=== PATIENT | male | born 1995 | race American Indian/Alaskan Native ===

== ENCOUNTER 2016-11-06 05:12 | Inpatient (IN) | payer OTHER ==
[2016-11-06 06:00] LABS: Basophils % (Auto) 0.3 % (0.0-1.8); Eosinophils % (Auto) 0.2 % (0.0-4.3); Hematocrit 40.3 % (35.5-45.6); Hemoglobin 13.4 gm/dl (11.8-15.2); Mean Corpuscular HGB Conc 33 % (32-34); Mean Corpuscular Hemoglobin 28 pg (28-32); Mean Corpuscular Volume 85 fl (84-94); Platelet Count 365 K/mm3 (140-440); Red Blood Count 4.76 M/mm3 (3.65-5.03); Red Cell Distribution Width 18.9 % (13.2-15.2); White Blood Count 11.5 K/mm3 (4.5-11.0)
[2016-11-06 06:26] LABS: Alanine Aminotransferase 11 units/L (7-56); Albumin 4.4 g/dL (3.9-5); Albumin/Globulin Ratio 1.4 %; Alkaline Phosphatase 78 units/L (35-129); Anion Gap 20 mmol/L; BUN/Creatinine Ratio 11.25; Blood Urea Nitrogen 9 mg/dL (9-20); Calcium 9.4 mg/dL (8.4-10.2); Carbon Dioxide 22 mmol/L (22-30); Chloride 101.9 mmol/L (98-107); Glucose 144 mg/dL (75-100); Lipase 28 units/L (13-60); Potassium 4.3 mmol/L (3.6-5.0); Sodium 140 mmol/L (137-145); Total Protein 7.5 g/dL (6.3-8.2)
[2016-11-06 07:34] LABS: Bacteria,Urine 1+ /HPF (Negative); Bilirubin,Urine NEG (Negative); Blood,Urine NEG (Negative); Ketones,Urine NEG (Negative); Leukocyte Esterase,Urine NEG (Negative); Mucus,Urine 3+ /HPF; Nitrite,Urine NEG (Negative); Urobilinogen,Urine < 2.0 mg/dL (<2.0)
[2016-11-06] MEDS ORDERED: MORPHINE IV ONE (09:02)
[2016-11-06] MEDS ORDERED: NACL 0.9% 1000 ML 1,000 ML IV ONE (09:02)
[2016-11-06] MEDS ORDERED: ZOFRAN IV ONE (09:02)
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
[2016-11-06] MEDS ORDERED: NACL ONE (09:06)
--- NOTE | 2016-11-06 10:06 | XRay Report ---
ABDOMINAL SERIES THREE VIEWS: 11/06/16 05:12:00 CLINICAL: Abdominal pain. FINDINGS: Supine and upright views demonstrate a normal bowel gas pattern with a large volume of stool in the colon and rectum. Moderate distention of a single loop of small bowel in the left upper quadrant. No pneumoperitoneum. No mass or suspicious calcifications. The bones and soft tissues are normal. IMPRESSION: Negative abdomen with abundant stool.
--- NOTE | 2016-11-06 10:54 | Cat Scan Report ---
CT ABDOMEN AND PELVIS WITH CONTRAST: 11/06/16 CLINICAL: Abdominal pain. COMPARISON: None. TECHNIQUE: Volumetric acquisition and 1.25 millimeter scan reconstructions after the uneventful intravenous injection of 100 cc Omnipaque 300. Consent was obtained prior to the administration of contrast. Oral contrast was not given. FINDINGS: Abdomen: The proximal and mid small bowel are moderately dilated and filled with fluid. The small bowel transitions to normal-caliber nondilated small bowel at the level of the umbilicus. No obstructing mass is identified. There are postop changes with a healed midline abdominal incision extending from the xiphoid to the pubis. The appendix is normal. Normal stool-filled colon. No pneumoperitoneum. No upper abdominal ascites. Normal liver, bile ducts and gallbladder. There is moderate thickening of the distal antrum of the stomach near the pylorus. The rest of the stomach is normal. Normal aorta and inferior vena cava. Normal adrenal glands and kidneys. The renal collecting systems and ureters are nondilated. No lymphadenopathy. Pelvis: Normal urinary bladder.Normal seminal vesicles and prostate. Mild pelvic ascites. Normal rectum and sigmoid colon.The surgical scar extends to the right groin and merges with soft tissue at the right spermatic cord. Bone windows demonstrate no bone lesion. IMPRESSION:1. Small bowel obstruction with a transition point to normal caliber small bowel at the umbilicus. I suspect surgical adhesion is the likely etiology given the evidence of previous surgery. 2. Nonspecific thickening of the distal antrum of the stomach.
[2016-11-06] MEDS ORDERED: XYLOCAINE TOPICAL 4% TP ONE (11:54)
[2016-11-06] MEDS ORDERED: XYLOCAINE TOPICAL 2% ONE (11:57)
[2016-11-06] MEDS ORDERED: LIDOCAINE VISCOUS 2% MM NR (12:00)
[2016-11-06] MEDS ORDERED: DILAUDID IV ONE (12:00)
--- NOTE | 2016-11-06 12:47 | History and Physical Report ---
History of Present Illness Chief complaint: My stomach hurts History of present illness: 21 YO Male with Nicotine Dependence presents to ED for evaluation. Pt states that he has been experiencing abdominal pain, associated with nausea and vomiting for the past 1 day with worsening symptoms over the past 6 hours. Pt states that his abdominal pain is currently 6/10, diffuse, nonradiating, worse with movement, relieved with nonmovement. Pt denies fever, chills, CP, Palpitations, recent ill contacts, BRBPR, ingestion of food/water from new or different sources. Pt underwent CT abdomen which revealed PSBO with transition, NGT placed in ED. Past History Past Medical History: other (Nicotine Dependence) Past Surgical History: bowel surgery Social history: single, lives with family, smoking Family history: no significant family history Medications and Allergies Allergies Allergy/AdvReac Type Severity Reaction Status Date / Time Fish Containing Products Allergy Swelling Verified 11/06/16 09:08 Home Medications Medication Instructions Recorded Confirmed Last Taken Type No Known Home Medications [No 11/06/16 11/06/16 Unknown History Reported Home Medications] Active Meds: Active Medications Lidocaine HCl (Lidocaine Viscous 2%) 15 ml MM PREOP NR Stop: 11/06/16 23:00 Review of Systems All systems: negative Gastrointestinal: abdominal pain, nausea, vomiting Exam - Constitutional Vitals: Temp Pulse Resp BP Pulse Ox 98.1 F 66 16 120/75 98 11/06/16 09:04 11/06/16 09:04 11/06/16 09:04 11/06/16 09:04 11/06/16 09:05 General appearance: Present: no acute distress, well-nourished - EENT Eyes: Present: PERRL ENT: hearing intact, clear oral mucosa - Neck Neck: Present: supple, normal ROM - Respiratory Respiratory effort: normal Respiratory: bilateral: CTA - Cardiovascular Heart Sounds: Present: S1 & S2. Absent: rub, click - Extremities Extremities: pulses symmetrical, No edema Peripheral Pulses: within normal limits - Abdominal General gastrointestinal: Present: soft, tender, non-distended, hypoactive bowel sounds. Absent: hepatomegaly, mass, hernia Localized gastrointestinal: tender: diffuse, guarding: diffuse, rebound: diffuse Male genitourinary: Present: normal - Integumentary Integumentary: Present: clear, warm, dry - Musculoskeletal Musculoskeletal: gait normal, strength equal bilaterally - Psychiatric Psychiatric: appropriate mood/affect, intact judgment & insight - Neurologic Neurologic: CNII-XII intact, moves all extremities Results - Labs CBC & Chem 7: 11/06/16 05:43 11/06/16 05:43 Labs: Abnormal lab results 11/06/16 11/06/16 11/06/16 Range/Units 05:20 05:43 05:43 WBC 11.5 H (4.5-11.0) K/mm3 RDW 18.9 H (13.2-15.2) % Lymph % (Auto) 8.0 L (13.4-35.0) % Lymph # 0.9 L (1.2-5.4) K/mm3 Seg Neutrophils % 86.4 H (40.0-70.0) % Seg Neutrophils # 9.9 H (1.8-7.7) K/mm3 Glucose 144 H (75-100) mg/dL Urine WBC (Auto) 12.0 H (0.0-6.0) /HPF Assessment and Plan - Patient Problems (1) SBO (small bowel obstruction) Current Visit: Yes Status: Acute Plan to address problem: NGT to LWS, IVF replacement, supportive, early ambulation QID and PRN, NPO, Surgery consulted in ED (2) Peritonitis Current Visit: Yes Status: Acute Plan to address problem: IVF, supportive care, IV abx, supportive care, serial abdominal exam (3) Nicotine dependence Current Visit: Yes Status: Acute Qualifiers: Nicotine product type: N Substance use status: in withdrawal Plan to address problem: PT counseled, pt refused to pick quit date (4) DVT prophylaxis Current Visit: Yes Status: Acute
[2016-11-06] MEDS ORDERED: DUONEB 0.5 MG-3 MG/3 ML SOLN IH PRN (13:02)
[2016-11-06] MEDS ORDERED: TYLENOL PO PRN (13:02)
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
[2016-11-06] MEDS ORDERED: NACL 0.45% 1000 ML 1,000 ML IV SCH (14:00)
--- NOTE | 2016-11-06 16:39 | Admit Criteria Form ---
Admission Criteria Documentation: INTESTINAL OBSTRUCTION Clinical Indications for Admission to Inpatient Care (Place 'X' for any and all applicable criteria): Admission is indicated for ANY ONE of the following (1)(2)(3)(4)(5): [X ]I. Partial bowel obstruction [ ]II. Complete bowel obstruction Extended stay beyond goal length of stay may be needed for(1)(4)(12(: [ ]a) Identified etiology (eg, hernia, volvulus, cancer with obstruction) requiring intervention [ ]b) Gallstone ileus [ ]c) Surgical intervention [ ]d) Acute comorbid illness (eg, electrolyte imbalance, hypovolemia, renal failure) The original [employer] content created by [employer] has been revised. The portions of the content which have been revised are identified through the use of italic text or in bold, and [facility] has neither reviewed nor approved the modified material. All other unmodified content is copyright [employer]. Please see references footnoted in the original [employer] edition 2016 Admission Criteria Met: Yes
[2016-11-06] MEDS ORDERED: TORADOL IV ONE (23:35)
[2016-11-06] MEDS ORDERED: TORADOL IV PRN (23:36)
--- NOTE | 2016-11-07 08:38 | XRay Report ---
ABDOMEN, 2 VIEWS History: Abdominal pain. Findings: A nasogastric tube terminates in the fundus of the stomach. No significant change in moderately dilated and fluid filled loops of small bowel throughout the abdomen. The colon appears normal caliber with normal stool. No free air is appreciated. Impression: No significant change in the partial small bowel obstruction pattern since yesterday's exam.
[2016-11-07 09:42] LABS: Hematocrit 48.8 % (35.5-45.6); Hemoglobin 16.1 gm/dl (11.8-15.2); Mean Corpuscular HGB Conc 33 % (32-34); Mean Corpuscular Hemoglobin 28 pg (28-32); Mean Corpuscular Volume 85 fl (84-94); Platelet Count 423 K/mm3 (140-440); Red Blood Count 5.74 M/mm3 (3.65-5.03); Red Cell Distribution Width 19.3 % (13.2-15.2); White Blood Count 5.4 K/mm3 (4.5-11.0)
[2016-11-07] MEDS ORDERED: LEVAQUIN 500MG/100ML 500 MG/100 ML BAG IV SCH (10:00)
[2016-11-07 10:01] LABS: Albumin 4.5 g/dL (3.9-5); Albumin/Globulin Ratio 1.3 %; BUN/Creatinine Ratio 18.33; Bilirubin,Total 0.8 mg/dL (0.1-1.2); Calcium 9.2 mg/dL (8.4-10.2); Chloride 94.6 mmol/L (98-107); Potassium 3.8 mmol/L (3.6-5.0); Total Protein 7.9 g/dL (6.3-8.2)
[2016-11-07 10:40] LABS: Blastocytes % (Manual) 0 %
[2016-11-07 10:41] LABS: Basophils % (Manual) 0 % (0.0-1.8); Eosinophils % (Manual) 0 % (0.0-4.3); Ovalocytes Few; Polychromasia Few
[2016-11-07 10:42] LABS: Diff Status Complete
--- NOTE | 2016-11-07 11:15 | Event Note ---
Date: 11/07/16 Pt pulled out his iv and NG early this am, it was reinserted and he pulled it out again, I suspect he is taking PO! He is very non compliant, his WBC is normal this am, his lytes demonstrate increased Creat, continue IV fluids, NG, The patient is becoming very difficult to manage, and I have spoken with the patient about this. Continue present management as patient permits.
[2016-11-07] MEDS ORDERED: ATIVAN IV ONE (11:32)
--- NOTE | 2016-11-07 12:54 | Event Note ---
Date: 11/07/16 I inserted the NG personally, I will give 1 litre NS bolus, STRICT NPO, Toradol d/andrew!, check KUB.
--- NOTE | 2016-11-07 13:48 | XRay Report ---
SUPINE KUB: History: Nasogastric tube placement. The nasogastric tube has been advanced and is now coiled in the fundus of the stomach. A portion of the nasogastric tube appears to be coiled within the distal esophagus as well. Please correlate with feet image and consider replacement. Small bowel obstruction pattern is unchanged since earlier today at 0753 hours. Impression: Nasogastric tube as described. Otherwise, no change since earlier today.
[2016-11-07] MEDS ORDERED: MORPHINE IV PRN (14:00)
[2016-11-07] MEDS ORDERED: NACL 0.9% 1000 ML 1,000 ML IV ONE ×3 (14:00→22:05)
[2016-11-07] MEDS ORDERED: NACL 0.45% 1000 ML 1,000 ML IV SCH (14:00)
[2016-11-07] MEDS ORDERED: ANCEF/STERILE WATER 2 GM/20 ML IV NR (16:00)
[2016-11-07] MEDS ORDERED: NEO SYNEPHRINE/NS Syringe(OR USE) IV ONE (16:00)
--- NOTE | 2016-11-07 16:11 | Anesthesia Day of Surgery ---
Anesthesia Day of Surgery - Day of Surgery Patient Examined: Yes Patient H&P Reviewed: Yes Patient is NPO: Yes
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
--- NOTE | 2016-11-07 16:13 | Event Note ---
Date: 11/07/16 Pt's lactic acid came back 9, KUB with fluid filled loops, patient has increased abd pain, will explore and rule out ischemic gut, adhesiolysis, possible bowel resection,I spoke with patient and obtained informed surgical consent, I disc. all potential risks and complication, alternatives in terms patient can understand and patient agreed to surgery and signed his consent.
[2016-11-07] MEDS ORDERED: XYLOCAINE MPF 2% ONE (16:21)
[2016-11-07] MEDS ORDERED: ZEMURON IV ONE (16:21)
[2016-11-07] MEDS ORDERED: QUELICIN ONE (16:21)
[2016-11-07] MEDS ORDERED: SUBLIMAZE ONE (16:22)
[2016-11-07] MEDS ORDERED: DIPRIVAN 10 MG/ML IV ONE (16:22)
[2016-11-07] MEDS ORDERED: CALCIUM CHLORIDE IV ONE (16:30)
[2016-11-07] MEDS ORDERED: SODIUM BICARBONATE ONE (17:12)
[2016-11-07] MEDS ORDERED: SODIUM BICARBONATE IV ONE ×3 (17:15→18:52)
--- NOTE | 2016-11-07 17:26 | Event Note ---
Date: 11/07/16 I was called stat to the room because after induction of anethesia patient developed v fib, and cardiac arrest, code immediately called, patient had emergent left subclavian line place with sterile technique, good venous return, ACLS protocol followed with CPR, rounds of drugs - rate and rhythm recovered for a period, continue present management, see anesthesia record.
[2016-11-07] MEDS ORDERED: ePHEDrine SULFATE ONE ×2 (17:29→17:39)
[2016-11-07] MEDS: INTROPIN DRIP 800 MG/D5W 250 ML 800 MG/250 ML BAG IV SCH (17:55)
[2016-11-07] MEDS ORDERED: SODIUM BICARBONATE 50 MEQ in NACL 0.9% 1000 ML 1,000 ML IV SCH (18:00)
--- NOTE | 2016-11-07 18:06 | Event Note ---
Date: 11/07/16 Complex set of events, consulted [facility] [employer] (), Cardiology , and Worked in OR with patient and anesthesia. Pt ultimately able to be restored to S Tach, with BP, I spoke with patient's Mom at length, Pt is very ill, obviously surgery cancelled. Will check CXR for line and tube placement, prognosis guarded.
[2016-11-07] MEDS ORDERED: NACL 0.9% 1000 ML 2,000 ML ONE (18:07)
[2016-11-07] MEDS ORDERED: D50W (25GM) IV ONE (18:52)
[2016-11-07] MEDS ORDERED: LEVOPHED DRIP 4 MG/NS 250 ML 4 MG/250 ML BAG IV ONE (19:02)
--- NOTE | 2016-11-07 19:16 | XRay Report ---
FINAL REPORT EXAM: XR CHEST 1V AP HISTORY: tube placement TECHNIQUE: Chest portable supine PRIORS: None. FINDINGS: ET tube is present. Tip is in satisfactory position approximately 4.7 centimeters above the galina. There is a left subclavian central venous catheter. Catheter tip overlying the left brachiocephalic vein. There is an NG tube present. There is a loop in the tube within the upper thoracic esophagus. The distal end descends below the diaphragm with tip at the gastric fundus. No evidence for pneumothorax. No acute infiltrate identified. Cardiac and mediastinal contours are within normal limits. IMPRESSION: left subclavian catheter. Catheter tip at the left brachiocephalic vein. ET in satisfactory position NG tube distal end descending below the diaphragm with distal end at the fundus of the stomach. There is a loop in the tubing at the upper esophagus
[2016-11-07 19:18] LABS: ISTAT Base Excess -20; ISTAT HCO3 10.6; ISTAT PCO2 40.7 (35-45); ISTAT PH 7.023 (7.35-7.45); ISTAT PO2 202 (80-105); ISTAT SO2 99; ISTAT TCO2 12
--- NOTE | 2016-11-07 19:24 | Consultation ---
History of Present Illness Consult date: 11/07/16 Past History Past Medical History: other (Nicotine Dependence) Past Surgical History: bowel surgery Social history: single, lives with family, smoking Family history: no significant family history Medications and Allergies Allergies Allergy/AdvReac Type Severity Reaction Status Date / Time Fish Containing Products Allergy Swelling Verified 11/06/16 09:08 Home Medications Medication Instructions Recorded Confirmed Last Taken Type No Known Home Medications [No 11/06/16 11/06/16 Unknown History Reported Home Medications] Active Meds: Active Medications Acetaminophen (Tylenol) 650 mg PO Q4H PRN PRN Reason: Pain MILD(1-3)/Fever >100.5/SEXTON Albuterol/Ipratropium (Duoneb 0.5 Mg-3 Mg/3 Ml Soln) 1 ampul IH Q6HRT PRN PRN Reason: Wheezing Levofloxacin/Dextrose (Levaquin 500mg/100ml) 500 mg in 100 mls @ 100 mls/hr IV Q24HR JOSELIN PRN Reason: Protocol Stop: 11/08/16 07:00 Last Admin: 11/07/16 11:57 Dose: 100 mls/hr Sodium Chloride (Nacl 0.45% 1000 Ml) 1,000 mls @ 125 mls/hr IV DIRECT JOSELIN Dopamine HCl/Dextrose (Intropin Drip 800 Mg/D5w 250 Ml) 800 mg in 250 mls @ 12.885 mls/hr IV TITR JOSELIN; 8 MCG/KG/MIN PRN Reason: Protocol Sodium Bicarbonate 150 meq/ (Dextrose) 1,150 mls @ 150 mls/hr IV DIRECT JOSELIN Morphine Sulfate (Morphine) 2 mg IV Q4H PRN PRN Reason: Pain , Severe (7-10) Physical Examination Vital Signs Temp Pulse Resp BP Pulse Ox 97.8 F 68 18 143/77 99 11/06/16 05:20 11/06/16 05:20 11/06/16 05:20 11/06/16 05:20 11/06/16 05:20 Results 11/07/16 09:08 11/07/16 09:08 Cardiac Enzymes 11/07/16 Range/Units 09:08 AST 21 (5-40) units/L CBC 11/07/16 Range/Units 09:08 WBC 5.4 (4.5-11.0) K/mm3 RBC 5.74 H (3.65-5.03) M/mm3 Hgb 16.1 H (11.8-15.2) gm/dl Hct 48.8 H D (35.5-45.6) % Plt Count 423 (140-440) K/mm3 Comprehensive Metabolic Panel 11/07/16 Range/Units 09:08 Sodium 135 L (137-145) mmol/L Potassium 3.8 (3.6-5.0) mmol/L Chloride 94.6 L (98-107) mmol/L Carbon Dioxide 15 L D (22-30) mmol/L BUN 33 H (9-20) mg/dL Creatinine 1.8 H D (0.8-1.5) mg/dL Glucose 132 H (75-100) mg/dL Calcium 9.2 (8.4-10.2) mg/dL AST 21 (5-40) units/L ALT 13 (7-56) units/L Alkaline Phosphatase 67 (35-129) units/L Total Protein 7.9 (6.3-8.2) g/dL Albumin 4.5 (3.9-5) g/dL Assessment and Plan Detailed Cardiology consult dictated.
[2016-11-07] MEDS: LEVOPHED DRIP 4 MG/NS 250 ML 4 MG/250 ML BAG IV SCH (19:33)
[2016-11-07 20:31] LABS: Creatine Kinase MB 34.5 ng/mL (0.0-4.0)
[2016-11-07 20:35] LABS: Albumin 2.5 g/dL (3.9-5); Albumin/Globulin Ratio 1.3 %; BUN/Creatinine Ratio 12.85; Bilirubin,Total 0.3 mg/dL (0.1-1.2); Calcium 7.9 mg/dL (8.4-10.2); Magnesium 1.7 mg/dL (1.7-2.3); Total Protein 4.4 g/dL (6.3-8.2)
[2016-11-07] MEDS ORDERED: D50W (25GM) IV PRN ×3 (20:38→20:47)
[2016-11-07] MEDS: SODIUM BICARBONATE 150 MEQ in D5W 1,000 ML IV SCH (20:40)
--- NOTE | 2016-11-07 21:57 | Consultation ---
History of Present Illness Consult date: 11/07/16 Requesting physician: RANDALL SEPULVEDA Reason for consult: other (Acute Respiratory Failure; S/P Cardiac Arrest) History of present illness: PULMONARY/CCM CONSULT NOTE (Full dictation # [id number]) Please see dictated notes for full details Past History Past Medical History: other (Nicotine Dependence) Past Surgical History: bowel surgery Social history: single, lives with family, smoking Family history: no significant family history Medications and Allergies Allergies Allergy/AdvReac Type Severity Reaction Status Date / Time Fish Containing Products Allergy Swelling Verified 11/06/16 09:08 Home Medications Medication Instructions Recorded Confirmed Last Taken Type No Known Home Medications [No 11/06/16 11/06/16 Unknown History Reported Home Medications] Active Meds: Active Medications Acetaminophen (Tylenol) 650 mg PO Q4H PRN PRN Reason: Pain MILD(1-3)/Fever >100.5/SEXTON Albuterol/Ipratropium (Duoneb 0.5 Mg-3 Mg/3 Ml Soln) 1 ampul IH Q6HRT PRN PRN Reason: Wheezing Dextrose (D50w (25gm)) 50 ml IV PRN PRN PRN Reason: Hypoglycemia Levofloxacin/Dextrose (Levaquin 500mg/100ml) 500 mg in 100 mls @ 100 mls/hr IV Q24HR JOSELIN PRN Reason: Protocol Stop: 11/08/16 07:00 Last Admin: 11/07/16 11:57 Dose: 100 mls/hr Sodium Chloride (Nacl 0.45% 1000 Ml) 1,000 mls @ 125 mls/hr IV DIRECT JOSELIN Dopamine HCl/Dextrose (Intropin Drip 800 Mg/D5w 250 Ml) 800 mg in 250 mls @ 12.885 mls/hr IV TITR JOSELIN; 8 MCG/KG/MIN PRN Reason: Protocol Last Titration: 11/07/16 19:33 Dose: 20 mcg/kg/min, 32.213 mls/hr Sodium Bicarbonate 150 meq/ (Dextrose) 1,150 mls @ 150 mls/hr IV DIRECT JOSELIN Last Admin: 11/07/16 20:40 Dose: 150 mls/hr Norepinephrine (Levophed Drip 4 Mg/Ns 250 Ml) 4 mg in 250 mls @ 7.5 mls/hr IV TITR JOSELIN; 2 MCG/MIN PRN Reason: Protocol Last Admin: 11/07/16 19:33 Dose: 2 mcg/min, 7.5 mls/hr Morphine Sulfate (Morphine) 2 mg IV Q4H PRN PRN Reason: Pain , Severe (7-10) Physical Examination Vital signs: Vital Signs Temp Pulse Resp BP Pulse Ox 97.8 F 68 18 143/77 99 11/06/16 05:20 11/06/16 05:20 11/06/16 05:20 11/06/16 05:20 11/06/16 05:20 Results - Laboratory Findings CBC and BMP: 11/07/16 09:08 11/07/16 19:38 ABG POC ABG pH 7.023 (7.35-7.45) L 11/07/16 18:42 POC ABG pCO2 40.7 (35-45) 11/07/16 18:42 POC ABG pO2 202 (80-105) H 11/07/16 18:42 POC ABG HCO3 10.6 11/07/16 18:42 POC ABG Total CO2 12 11/07/16 18:42 POC ABG O2 Sat 99 11/07/16 18:42 Abnormal lab findings: Abnormal Labs 11/07/16 11/07/16 11/07/16 09:08 09:08 12:40 RBC 5.74 H Hgb 16.1 H Hct 48.8 H D RDW 19.3 H Seg Neuts % (Manual) 5.0 L Monocytes % (Manual) 17.0 H Seg Neutrophils # Man 0.3 L Monocytes # (Manual) 0.9 H POC ABG pH POC ABG pO2 Sodium 135 L Chloride 94.6 L Carbon Dioxide 15 L D BUN 33 H Creatinine 1.8 H D Glucose 132 H POC Glucose Lactic Acid 9.00 H* Calcium AST Total Creatine Kinase CK-MB (CK-2) Troponin T Total Protein Albumin LDL Cholesterol Direct HDL Cholesterol 11/07/16 11/07/16 11/07/16 18:42 18:44 19:30 RBC Hgb Hct RDW Seg Neuts % (Manual) Monocytes % (Manual) Seg Neutrophils # Man Monocytes # (Manual) POC ABG pH 7.023 L POC ABG pO2 202 H Sodium Chloride Carbon Dioxide BUN Creatinine Glucose POC Glucose < 40 L Lactic Acid 15.40 H* Calcium AST Total Creatine Kinase CK-MB (CK-2) Troponin T Total Protein Albumin LDL Cholesterol Direct HDL Cholesterol 11/07/16 11/07/16 11/07/16 19:38 19:38 19:38 RBC Hgb Hct RDW Seg Neuts % (Manual) Monocytes % (Manual) Seg Neutrophils # Man Monocytes # (Manual) POC ABG pH POC ABG pO2 Sodium Chloride 97.0 L Carbon Dioxide 14 L BUN 45 H Creatinine 3.5 H D Glucose 148 H POC Glucose Lactic Acid Calcium 7.9 L AST 81 H Total Creatine Kinase 1820 H CK-MB (CK-2) 34.5 H Troponin T 0.278 H* Total Protein 4.4 L D Albumin 2.5 L LDL Cholesterol Direct 9 L HDL Cholesterol 34 L
[2016-11-07 22:36] LABS: ISTAT Base Excess -10; ISTAT HCO3 16.5; ISTAT PCO2 31.4 (35-45); ISTAT PH 7.327 (7.35-7.45); ISTAT PO2 105 (80-105); ISTAT SO2 98; ISTAT TCO2 17
[2016-11-07] MEDS: DUONEB 0.5 MG-3 MG/3 ML SOLN IH SCH (22:46)
[2016-11-07] MEDS ORDERED: fentaNYL DRIP Premix 2,000 MCG/100 ML BAG IV SCH (23:00)
[2016-11-07] MEDS ORDERED: VASELINE LIP THERAPY TP PRN (23:31)
[2016-11-07] MEDS ORDERED: ARTIFICIAL TEARS OPHTH OINT OU PRN (23:31)
--- NOTE | 2016-11-07 23:42 | Progress Note ---
Assessment and Plan 1) S/p V fib and Cardio resp arrest in OR after induction of anesthesia- Revived after Acls protocol Now intubated on ventilator.Bp reasonable.In Sinus tach. (2) SBO (small bowel obstruction) Current Visit: Yes Status: Acute Plan to address problem: NGT to LWS, IVF replacement. (3) Peritonitis Current Visit: Yes Status: Acute Plan to address problem: IVF, supportive care, IV abx, supportive care, serial abdominal exa (4) DVT prophylaxis Current Visit: Yes Status: Acute Condition -Guarded Subjective Date of service: 11/07/16 Principal diagnosis: SBO,Cardiac arrest s/p revival Interval history: Patient went into cardio resp arrest in OR-was revived and now in Sinus tach with BP of 103/79. Objective - Exam Narrative Exam: Patient is intubated and on vent support - Constitutional Vitals: Vital Signs - 12hr 11/07/16 11/07/16 11/07/16 15:18 15:55 17:48 Temperature 98.5 F Pulse Rate 149 H 141 H Pulse Rate [ Bilateral Throughout] Respiratory 26 H 13 Rate Respiratory Rate [Bilateral Throughout] Blood Pressure 91/51 O2 Sat by Pulse 97 99 Oximetry 11/07/16 11/07/16 11/07/16 17:50 18:00 18:06 Temperature 97.4 F L Pulse Rate 140 H 138 H 138 H Pulse Rate [ Bilateral Throughout] Respiratory 16 12 Rate Respiratory Rate [Bilateral Throughout] Blood Pressure 88/35 88/38 88/38 O2 Sat by Pulse 97 97 Oximetry 11/07/16 11/07/16 11/07/16 18:10 18:20 18:30 Temperature Pulse Rate 139 H 145 H 147 H Pulse Rate [ Bilateral Throughout] Respiratory 12 16 21 Rate Respiratory Rate [Bilateral Throughout] Blood Pressure 91/36 91/36 89/34 O2 Sat by Pulse 97 96 98 Oximetry 11/07/16 11/07/16 11/07/16 18:40 18:43 18:50 Temperature Pulse Rate 150 H 149 H 150 H Pulse Rate [ Bilateral Throughout] Respiratory 25 H 28 H Rate Respiratory Rate [Bilateral Throughout] Blood Pressure 85/37 85/37 89/38 O2 Sat by Pulse 100 99 100 Oximetry 11/07/16 11/07/16 11/07/16 19:00 19:11 19:21 Temperature Pulse Rate 143 H 144 H 144 H Pulse Rate [ Bilateral Throughout] Respiratory 30 H 30 H 30 H Rate Respiratory Rate [Bilateral Throughout] Blood Pressure 89/38 89/38 131/65 O2 Sat by Pulse 100 100 100 Oximetry 11/07/16 11/07/16 11/07/16 19:30 19:41 19:51 Temperature Pulse Rate 147 H 147 H 146 H Pulse Rate [ Bilateral Throughout] Respiratory 30 H 27 H 27 H Rate Respiratory Rate [Bilateral Throughout] Blood Pressure 121/71 121/71 112/60 O2 Sat by Pulse 100 100 100 Oximetry 11/07/16 11/07/16 11/07/16 20:00 20:11 20:21 Temperature Pulse Rate 142 H 141 H 141 H Pulse Rate [ Bilateral Throughout] Respiratory 30 H 30 H 30 H Rate Respiratory Rate [Bilateral Throughout] Blood Pressure 127/59 127/59 128/64 O2 Sat by Pulse 100 100 99 Oximetry 11/07/16 11/07/16 11/07/16 20:30 20:41 20:51 Temperature Pulse Rate 142 H 142 H 145 H Pulse Rate [ Bilateral Throughout] Respiratory 30 H 29 H 30 H Rate Respiratory Rate [Bilateral Throughout] Blood Pressure 126/71 121/70 116/67 O2 Sat by Pulse 98 98 97 Oximetry 11/07/16 11/07/16 11/07/16 21:00 21:01 21:11 Temperature Pulse Rate 145 H 152 H 146 H Pulse Rate [ Bilateral Throughout] Respiratory 30 H 29 H Rate Respiratory Rate [Bilateral Throughout] Blood Pressure 126/71 113/48 126/71 O2 Sat by Pulse 98 100 98 Oximetry 11/07/16 11/07/16 11/07/16 21:21 21:31 21:41 Temperature Pulse Rate 148 H 152 H 152 H Pulse Rate [ Bilateral Throughout] Respiratory 31 H 31 H 35 H Rate Respiratory Rate [Bilateral Throughout] Blood Pressure 117/80 116/63 116/63 O2 Sat by Pulse 98 98 100 Oximetry 11/07/16 11/07/16 11/07/16 21:51 22:01 22:11 Temperature Pulse Rate 152 H 154 H 153 H Pulse Rate [ Bilateral Throughout] Respiratory 28 H 32 H 37 H Rate Respiratory Rate [Bilateral Throughout] Blood Pressure 113/48 113/48 113/48 O2 Sat by Pulse 100 100 99 Oximetry 11/07/16 11/07/16 11/07/16 22:20 22:31 22:41 Temperature Pulse Rate 153 H 153 H 153 H Pulse Rate [ Bilateral Throughout] Respiratory 35 H 37 H 38 H Rate Respiratory Rate [Bilateral Throughout] Blood Pressure 104/42 104/42 103/79 O2 Sat by Pulse 99 99 99 Oximetry 11/07/16 11/07/16 11/07/16 22:48 22:51 23:01 Temperature Pulse Rate 155 H 159 H Pulse Rate [ 150 H Bilateral Throughout] Respiratory 48 H 35 H Rate Respiratory 36 H Rate [Bilateral Throughout] Blood Pressure 103/79 127/63 O2 Sat by Pulse 99 99 Oximetry 11/07/16 23:11 Temperature Pulse Rate 155 H Pulse Rate [ Bilateral Throughout] Respiratory 39 H Rate Respiratory Rate [Bilateral Throughout] Blood Pressure 127/63 O2 Sat by Pulse 99 Oximetry General appearance: Present: mild distress, well-nourished - EENT Eyes: PERRL, EOM intact ENT: hearing intact, clear oral mucosa Ears: bilateral: normal - Neck Neck: supple, normal ROM - Respiratory Respiratory effort: normal Respiratory: bilateral: CTA - Breasts Breasts: normal - Cardiovascular Rhythm: regular Heart Sounds: Present: S1 & S2. Absent: gallop, rub Extremities: pulses intact, No edema, normal color, Full ROM - Gastrointestinal General gastrointestinal: Present: soft, non-tender, non-distended, normal bowel sounds - Genitourinary Male genitourinary: normal - Integumentary Integumentary: clear, warm, dry - Musculoskeletal Musculoskeletal: 1, strength equal bilaterally - Neurologic Neurologic: moves all extremities - Psychiatric Psychiatric: memory intact, appropriate mood/affect, intact judgment & insight - Labs CBC & Chem 7: 11/07/16 09:08 11/07/16 19:38 Labs: Abnormal lab results 11/07/16 11/07/16 11/07/16 Range/Units 09:08 09:08 12:40 RBC 5.74 H (3.65-5.03) M/mm3 Hgb 16.1 H (11.8-15.2) gm/dl Hct 48.8 H D (35.5-45.6) % RDW 19.3 H (13.2-15.2) % Seg Neuts % (Manual) 5.0 L (40.0-70.0) % Monocytes % (Manual) 17.0 H (0.0-7.3) % Seg Neutrophils # Man 0.3 L (1.8-7.7) K/mm3 Monocytes # (Manual) 0.9 H (0.0-0.8) K/mm3 POC ABG pH (7.35-7.45) POC ABG pCO2 (35-45) POC ABG pO2 (80-105) Sodium 135 L (137-145) mmol/L Chloride 94.6 L (98-107) mmol/L Carbon Dioxide 15 L D (22-30) mmol/L BUN 33 H (9-20) mg/dL Creatinine 1.8 H D (0.8-1.5) mg/dL Glucose 132 H (75-100) mg/dL POC Glucose (70-105) Lactic Acid 9.00 H* (0.7-2.0) mmol/L Calcium (8.4-10.2) mg/dL AST (5-40) units/L Total Creatine Kinase (55-170) units/L CK-MB (CK-2) (0.0-4.0) ng/mL Troponin T (0.00-0.029) ng/mL Total Protein (6.3-8.2) g/dL Albumin (3.9-5) g/dL LDL Cholesterol Direct (50-130) mg/dL HDL Cholesterol (40-59) mg/dL 11/07/16 11/07/16 11/07/16 Range/Units 18:42 18:44 19:30 RBC (3.65-5.03) M/mm3 Hgb (11.8-15.2) gm/dl Hct (35.5-45.6) % RDW (13.2-15.2) % Seg Neuts % (Manual) (40.0-70.0) % Monocytes % (Manual) (0.0-7.3) % Seg Neutrophils # Man (1.8-7.7) K/mm3 Monocytes # (Manual) (0.0-0.8) K/mm3 POC ABG pH 7.023 L (7.35-7.45) POC ABG pCO2 (35-45) POC ABG pO2 202 H (80-105) Sodium (137-145) mmol/L Chloride (98-107) mmol/L Carbon Dioxide (22-30) mmol/L BUN (9-20) mg/dL Creatinine (0.8-1.5) mg/dL Glucose (75-100) mg/dL POC Glucose < 40 L (70-105) Lactic Acid 15.40 H* (0.7-2.0) mmol/L Calcium (8.4-10.2) mg/dL AST (5-40) units/L Total Creatine Kinase (55-170) units/L CK-MB (CK-2) (0.0-4.0) ng/mL Troponin T (0.00-0.029) ng/mL Total Protein (6.3-8.2) g/dL Albumin (3.9-5) g/dL LDL Cholesterol Direct (50-130) mg/dL HDL Cholesterol (40-59) mg/dL 11/07/16 11/07/16 11/07/16 Range/Units 19:38 19:38 19:38 RBC (3.65-5.03) M/mm3 Hgb (11.8-15.2) gm/dl Hct (35.5-45.6) % RDW (13.2-15.2) % Seg Neuts % (Manual) (40.0-70.0) % Monocytes % (Manual) (0.0-7.3) % Seg Neutrophils # Man (1.8-7.7) K/mm3 Monocytes # (Manual) (0.0-0.8) K/mm3 POC ABG pH (7.35-7.45) POC ABG pCO2 (35-45) POC ABG pO2 (80-105) Sodium (137-145) mmol/L Chloride 97.0 L (98-107) mmol/L Carbon Dioxide 14 L (22-30) mmol/L BUN 45 H (9-20) mg/dL Creatinine 3.5 H D (0.8-1.5) mg/dL Glucose 148 H (75-100) mg/dL POC Glucose (70-105) Lactic Acid (0.7-2.0) mmol/L Calcium 7.9 L (8.4-10.2) mg/dL AST 81 H (5-40) units/L Total Creatine Kinase 1820 H (55-170) units/L CK-MB (CK-2) 34.5 H (0.0-4.0) ng/mL Troponin T 0.278 H* (0.00-0.029) ng/mL Total Protein 4.4 L D (6.3-8.2) g/dL Albumin 2.5 L (3.9-5) g/dL LDL Cholesterol Direct 9 L (50-130) mg/dL HDL Cholesterol 34 L (40-59) mg/dL 11/07/16 Range/Units 22:24 RBC (3.65-5.03) M/mm3 Hgb (11.8-15.2) gm/dl Hct (35.5-45.6) % RDW (13.2-15.2) % Seg Neuts % (Manual) (40.0-70.0) % Monocytes % (Manual) (0.0-7.3) % Seg Neutrophils # Man (1.8-7.7) K/mm3 Monocytes # (Manual) (0.0-0.8) K/mm3 POC ABG pH 7.327 L (7.35-7.45) POC ABG pCO2 31.4 L (35-45) POC ABG pO2 (80-105) Sodium (137-145) mmol/L Chloride (98-107) mmol/L Carbon Dioxide (22-30) mmol/L BUN (9-20) mg/dL Creatinine (0.8-1.5) mg/dL Glucose (75-100) mg/dL POC Glucose (70-105) Lactic Acid (0.7-2.0) mmol/L Calcium (8.4-10.2) mg/dL AST (5-40) units/L Total Creatine Kinase (55-170) units/L CK-MB (CK-2) (0.0-4.0) ng/mL Troponin T (0.00-0.029) ng/mL Total Protein (6.3-8.2) g/dL Albumin (3.9-5) g/dL LDL Cholesterol Direct (50-130) mg/dL HDL Cholesterol (40-59) mg/dL
[2016-11-07] MEDS ORDERED: DIPRIVAN 10 MG/ML 1,000 MG/100 ML BOTTLE IV SCH (23:45)
[2016-11-08] MEDS: ZOSYN/NS 2.25 GM/50ML 2.25 GM/50 ML BAG IV SCH ×4 (00:15→23:02)
[2016-11-08] MEDS: LEVOPHED DRIP 4 MG/NS 250 ML 4 MG/250 ML BAG IV SCH ×2 (00:55→08:35)
[2016-11-08] MEDS: PITRESSin 20 UNIT in NACL 0.9% 100 ML IV SCH ×3 (01:27→23:02)
[2016-11-08 02:01] LABS: Creatine Kinase MB 161.4 ng/mL (0.0-4.0)
[2016-11-08] MEDS ORDERED: NACL 0.9% 1000 ML 2,000 ML IV ONE (02:29)
[2016-11-08] MEDS ORDERED: NACL 0.9% 1000 ML 1,000 ML IV ONE (02:29)
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
[2016-11-08 03:52] LABS: Albumin 2.5 g/dL (3.9-5); Albumin/Globulin Ratio 1.1 %; BUN/Creatinine Ratio 11.59; Bilirubin,Total 0.4 mg/dL (0.1-1.2); Calcium 6.6 mg/dL (8.4-10.2); Chloride 98.3 mmol/L (98-107); Potassium 4.2 mmol/L (3.6-5.0); Total Protein 4.7 g/dL (6.3-8.2)
[2016-11-08] MEDS ORDERED: TYLENOL PR PRN (05:45)
[2016-11-08 06:04] LABS: ISTAT Base Excess -6; ISTAT PCO2 25.8 (35-45); ISTAT PH 7.451 (7.35-7.45); ISTAT PO2 94 (80-105); ISTAT SO2 98; ISTAT TCO2 19
[2016-11-08] MEDS ORDERED: ADRENALIN ONE ×2 (06:05→12:15)
[2016-11-08] MEDS ORDERED: CALCIUM CHLORIDE IV ONE ×2 (06:05→12:35)
[2016-11-08] MEDS ORDERED: NACL 0.9% ONE (06:05)
[2016-11-08] MEDS ORDERED: SODIUM BICARBONATE IV ONE ×4 (06:05→12:35)
[2016-11-08] MEDS ORDERED: D50W (25GM) IV ONE ×2 (06:05→12:15)
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
--- NOTE | 2016-11-08 06:30 | Event Note ---
Date: 11/08/16 Code blue called Initial rhythm was PEA ACLS protocol was initiated, please refer to the code sheet for details He was shocked once for VTAc, he then went into [facility]T There was ROSC Will repeat labs, family will be notified
[2016-11-08] MEDS ORDERED: PROTONIX IV ONE (06:40)
[2016-11-08] MEDS ORDERED: PROTONIX 80 MG in NACL 0.9% 100 ML IV SCH (06:40)
[2016-11-08 07:15] LABS: Hematocrit 32.2 % (35.5-45.6); Hemoglobin 10.1 gm/dl (11.8-15.2); Mean Corpuscular HGB Conc 31 % (32-34); Mean Corpuscular Hemoglobin 28 pg (28-32); Mean Corpuscular Volume 89 fl (84-94); Platelet Count 177 K/mm3 (140-440); Red Cell Distribution Width 19.4 % (13.2-15.2); White Blood Count 2.8 K/mm3 (4.5-11.0)
[2016-11-08 07:21] LABS: Albumin 1.6 g/dL (3.9-5); Albumin/Globulin Ratio 0.9 %; BUN/Creatinine Ratio 10.37; Basophils % (Auto) 0.3 % (0.0-1.8); Bilirubin,Total 0.3 mg/dL (0.1-1.2); Calcium 7.6 mg/dL (8.4-10.2); Chloride 97.5 mmol/L (98-107); Eosinophils % (Auto) 0.1 % (0.0-4.3); Potassium 4.7 mmol/L (3.6-5.0); Total Protein 3.4 g/dL (6.3-8.2)
[2016-11-08 07:25] LABS: INR 4.03 (0.87-1.13)
[2016-11-08 07:26] LABS: Partial Thromboplastin Time 59.3 Sec. (24.2-36.6)
[2016-11-08] MEDS ORDERED: MAGNESIUM SULFATE 2GM/50ML 2 GM/50 ML BAG IV ONE (08:00)
[2016-11-08 08:36] LABS: Hematocrit 40.5 % (35.5-45.6); Hemoglobin 12.5 gm/dl (11.8-15.2); Mean Corpuscular HGB Conc 31 % (32-34); Mean Corpuscular Hemoglobin 28 pg (28-32); Mean Corpuscular Volume 90 fl (84-94); Platelet Count 195 K/mm3 (140-440); Red Blood Count 4.52 M/mm3 (3.65-5.03); Red Cell Distribution Width 19.8 % (13.2-15.2); White Blood Count 3.9 K/mm3 (4.5-11.0)
[2016-11-08] MEDS: DUONEB 0.5 MG-3 MG/3 ML SOLN IH SCH ×3 (08:56→19:46)
[2016-11-08 08:59] LABS: Creatine Kinase MB 120.2 ng/mL (0.0-4.0)
[2016-11-08] MEDS ORDERED: LEVOPHED 8 MG in NACL 0.9% 250ML 242 ML IV SCH (09:00)
[2016-11-08 09:33] LABS: Anisocytosis 1+; Basophils % (Manual) 0 % (0.0-1.8); Blastocytes % (Manual) 0 %; Burr Cells Few; Diff Status Complete; Large Platelets Few; Ovalocytes Few; Platelet Estimate Consistent w Auto
--- NOTE | 2016-11-08 09:43 | Progress Note ---
Assessment and Plan 21 YO Male with Nicotine Dependence presented to ED for abdominal pain, associated with nausea and vomiting for the past 1 day with worsening symptoms over the past [address] abdomen pelvis showed PSBO. Initially was on NG suction. Surgery was planned for levated lactic acid and increased abdominal pain. Patient had cardiac arrest after giving anesthesia. He was intubated and transfer to CCU, surgery was cancelled. His CE and Cr cont to increase. requiring 2 pressor to maintain BP. He had another cardiac arrest this morning. No cough or gag reflex on physical exam. s/p cardiac arrest - get 2d echo - monitor CE, cardiology consult - likely from severe sepsis Acute respiratory failure - likely from cardiac arrest due to severe sepsis - on vent, CC following Acute metabolic encephalopathy - possible anoxic brain injury - CT head, EEG - neuro consult [facility] - likely ATN from severe sepsis - cont bicarbonate drip - very low urine output elevated troponin - likely from cardiac arrest and [facility] - cont to monitor, cardiology consulted - obtain 2d echo, will defer anticoagulation to cardiology SBO with elevated lactic acid - keep NPO, surgery following Severe sepsis - intra abdominal in origin - cont zosyn, add vancomycin Septic shock - on pressors, cont to monitor BP Very poor prognosis. Updated family at bedside. The high probability of a clinically significant, sudden or life threatening deterioration of the system(s) required my full and direct attention, intervention and personal management. The aggregate critical care time was [40] minutes. This time is in addition to time spent performing reported procedures but includes the following: [X] Data Review and interpretation [X] Patient assessment and monitoring of vital signs [X] Documentation [X] Medication orders and management Subjective Date of service: 11/08/16 Principal diagnosis: SBO,Cardiac arrest s/p revival Interval history: Pt aracelis nd examined updated family at bedside had cardiac arrest this morning Initial rhythm was PEA ACLS protocol was initiated, He was shocked once for VTAc, he then went into SVT he is now on three pressors and intubated Objective - Constitutional Vitals: Vital Signs - 12hr 11/07/16 11/07/16 11/07/16 21:51 22:01 22:11 Temperature Pulse Rate 152 H 154 H 153 H Pulse Rate [ Bilateral Throughout] Respiratory 28 H 32 H 37 H Rate Respiratory Rate [Bilateral Throughout] Blood Pressure 113/48 113/48 113/48 O2 Sat by Pulse 100 100 99 Oximetry 11/07/16 11/07/16 11/07/16 22:20 22:31 22:41 Temperature Pulse Rate 153 H 153 H 153 H Pulse Rate [ Bilateral Throughout] Respiratory 35 H 37 H 38 H Rate Respiratory Rate [Bilateral Throughout] Blood Pressure 104/42 104/42 103/79 O2 Sat by Pulse 99 99 99 Oximetry 11/07/16 11/07/16 11/07/16 22:48 22:51 23:01 Temperature Pulse Rate 155 H 159 H Pulse Rate [ 150 H Bilateral Throughout] Respiratory 48 H 35 H Rate Respiratory 36 H Rate [Bilateral Throughout] Blood Pressure 103/79 127/63 O2 Sat by Pulse 99 99 Oximetry 11/07/16 11/07/16 11/07/16 23:11 23:15 23:21 Temperature Pulse Rate 155 H 157 H 159 H Pulse Rate [ Bilateral Throughout] Respiratory 39 H 40 H 46 H Rate Respiratory Rate [Bilateral Throughout] Blood Pressure 127/63 127/63 115/86 O2 Sat by Pulse 99 99 99 Oximetry 11/07/16 11/07/16 11/07/16 23:31 23:41 23:51 Temperature Pulse Rate 163 H 168 H 169 H Pulse Rate [ Bilateral Throughout] Respiratory 49 H 49 H 49 H Rate Respiratory Rate [Bilateral Throughout] Blood Pressure 108/85 108/85 132/60 O2 Sat by Pulse 99 98 98 Oximetry 11/08/16 11/08/16 11/08/16 00:00 00:10 00:21 Temperature Pulse Rate 167 H 160 H 156 H Pulse Rate [ Bilateral Throughout] Respiratory 30 H 30 H 30 H Rate Respiratory Rate [Bilateral Throughout] Blood Pressure 132/60 95/44 84/39 O2 Sat by Pulse 100 99 99 Oximetry 11/08/16 11/08/16 11/08/16 00:24 00:31 00:41 Temperature 100.1 F H Pulse Rate 155 H 150 H Pulse Rate [ Bilateral Throughout] Respiratory 30 H 30 H Rate Respiratory Rate [Bilateral Throughout] Blood Pressure 79/30 78/31 O2 Sat by Pulse 98 97 Oximetry 11/08/16 11/08/16 11/08/16 00:50 01:01 01:11 Temperature Pulse Rate 147 H 150 H 151 H Pulse Rate [ Bilateral Throughout] Respiratory 30 H 30 H 30 H Rate Respiratory Rate [Bilateral Throughout] Blood Pressure 71/37 114/58 98/38 O2 Sat by Pulse 97 97 97 Oximetry 11/08/16 11/08/16 11/08/16 01:21 01:30 01:40 Temperature Pulse Rate 151 H 148 H 148 H Pulse Rate [ Bilateral Throughout] Respiratory 30 H 30 H 30 H Rate Respiratory Rate [Bilateral Throughout] Blood Pressure 98/38 86/24 89/15 O2 Sat by Pulse 97 97 97 Oximetry 11/08/16 11/08/16 11/08/16 01:50 02:00 02:10 Temperature Pulse Rate 150 H 150 H 149 H Pulse Rate [ Bilateral Throughout] Respiratory 30 H 30 H 30 H Rate Respiratory Rate [Bilateral Throughout] Blood Pressure 74/18 86/38 66/37 O2 Sat by Pulse 98 100 97 Oximetry 11/08/16 11/08/16 11/08/16 02:20 02:31 02:41 Temperature Pulse Rate 150 H 152 H 151 H Pulse Rate [ Bilateral Throughout] Respiratory 30 H 30 H 30 H Rate Respiratory Rate [Bilateral Throughout] Blood Pressure 70/40 65/44 85/39 O2 Sat by Pulse 97 97 98 Oximetry 11/08/16 11/08/16 11/08/16 02:50 03:00 03:11 Temperature Pulse Rate 151 H 150 H 152 H Pulse Rate [ Bilateral Throughout] Respiratory 30 H 30 H 31 H Rate Respiratory Rate [Bilateral Throughout] Blood Pressure 90/47 87/52 80/56 O2 Sat by Pulse 100 99 98 Oximetry 11/08/16 11/08/16 11/08/16 03:20 03:31 03:41 Temperature Pulse Rate 151 H 158 H 157 H Pulse Rate [ Bilateral Throughout] Respiratory 33 H 36 H 34 H Rate Respiratory Rate [Bilateral Throughout] Blood Pressure 89/53 89/53 81/57 O2 Sat by Pulse 98 100 100 Oximetry 11/08/16 11/08/16 11/08/16 03:51 04:00 04:01 Temperature Pulse Rate 158 H 163 H Pulse Rate [ Bilateral Throughout] Respiratory 34 H 40 H Rate Respiratory Rate [Bilateral Throughout] Blood Pressure 81/57 150/88 O2 Sat by Pulse 100 100 100 Oximetry 11/08/16 11/08/16 11/08/16 04:11 04:21 04:31 Temperature Pulse Rate 158 H 160 H 164 H Pulse Rate [ Bilateral Throughout] Respiratory 39 H 42 H 44 H Rate Respiratory Rate [Bilateral Throughout] Blood Pressure 147/87 147/87 92/43 O2 Sat by Pulse 100 100 100 Oximetry 11/08/16 11/08/16 11/08/16 04:36 04:41 04:51 Temperature 100.4 F H Pulse Rate 166 H 169 H Pulse Rate [ Bilateral Throughout] Respiratory 38 H 42 H Rate Respiratory Rate [Bilateral Throughout] Blood Pressure 80/61 80/61 O2 Sat by Pulse 100 100 Oximetry 11/08/16 11/08/16 11/08/16 05:01 05:11 05:20 Temperature Pulse Rate 173 H 170 H 176 H Pulse Rate [ Bilateral Throughout] Respiratory 41 H 40 H 45 H Rate Respiratory Rate [Bilateral Throughout] Blood Pressure 75/25 79/55 96/57 O2 Sat by Pulse 100 99 99 Oximetry 11/08/16 11/08/16 11/08/16 05:31 05:40 05:51 Temperature Pulse Rate 178 H 165 H 110 H Pulse Rate [ Bilateral Throughout] Respiratory 40 H 39 H 15 Rate Respiratory Rate [Bilateral Throughout] Blood Pressure 109/79 93/38 117/83 O2 Sat by Pulse 74 L Oximetry 11/08/16 11/08/16 11/08/16 06:01 06:11 06:21 Temperature Pulse Rate 194 H 139 H Pulse Rate [ Bilateral Throughout] Respiratory 22 37 H 21 Rate Respiratory Rate [Bilateral Throughout] Blood Pressure 117/98 105/45 88/39 O2 Sat by Pulse 98 Oximetry 11/08/16 11/08/16 11/08/16 06:30 06:40 06:50 Temperature Pulse Rate 129 H 127 H 127 H Pulse Rate [ Bilateral Throughout] Respiratory 35 H 34 H 35 H Rate Respiratory Rate [Bilateral Throughout] Blood Pressure 69/34 78/26 71/35 O2 Sat by Pulse 98 99 99 Oximetry 11/08/16 11/08/16 11/08/16 07:00 07:11 07:21 Temperature Pulse Rate 128 H 128 H 130 H Pulse Rate [ Bilateral Throughout] Respiratory 17 35 H 21 Rate Respiratory Rate [Bilateral Throughout] Blood Pressure 76/25 83/32 71/35 O2 Sat by Pulse 99 86 Oximetry 11/08/16 11/08/16 11/08/16 07:31 07:41 07:51 Temperature Pulse Rate 130 H 130 H 128 H Pulse Rate [ Bilateral Throughout] Respiratory 18 17 18 Rate Respiratory Rate [Bilateral Throughout] Blood Pressure 90/57 90/57 90/57 O2 Sat by Pulse 76 L Oximetry 11/08/16 11/08/16 11/08/16 08:00 08:01 08:11 Temperature 102.0 F H Pulse Rate 129 H 132 H Pulse Rate [ Bilateral Throughout] Respiratory 21 18 Rate Respiratory Rate [Bilateral Throughout] Blood Pressure 75/44 141/106 O2 Sat by Pulse Oximetry 11/08/16 11/08/16 11/08/16 08:21 08:31 08:40 Temperature Pulse Rate 131 H 133 H 132 H Pulse Rate [ Bilateral Throughout] Respiratory 16 18 16 Rate Respiratory Rate [Bilateral Throughout] Blood Pressure 146/121 90/54 103/49 O2 Sat by Pulse 71 L Oximetry 11/08/16 11/08/16 11/08/16 08:51 08:56 09:00 Temperature Pulse Rate 129 H 130 H Pulse Rate [ 130 H Bilateral Throughout] Respiratory 15 Rate Respiratory 15 Rate [Bilateral Throughout] Blood Pressure 110/38 110/38 O2 Sat by Pulse 64 L 100 Oximetry 11/08/16 09:01 Temperature Pulse Rate 129 H Pulse Rate [ Bilateral Throughout] Respiratory 17 Rate Respiratory Rate [Bilateral Throughout] Blood Pressure 126/90 O2 Sat by Pulse Oximetry General appearance: Present: other (unresponsive) - EENT ENT: clear oral mucosa (no), no thrush Ears: bilateral: normal - Neck Neck: supple, masses or JVD, no enlarged thyroid - Respiratory Respiratory effort: other (on vent ) Respiratory: bilateral: CTA, rales - Cardiovascular Heart Sounds: Present: S1 & S2 (tachycardic). Absent: gallop, rub Extremities: No edema, normal color - Gastrointestinal General gastrointestinal: Present: soft, distended, absent bowel sounds, other - Integumentary Integumentary: clear, clammy - Musculoskeletal Musculoskeletal: other (does not follow commend) - Neurologic Neurologic: other (no cough or gag reflex) - Psychiatric Psychiatric: other (unable to assess) - Labs CBC & Chem 7: 11/08/16 06:40 11/08/16 06:40 Labs: Abnormal lab results 11/07/16 11/07/16 11/07/16 Range/Units 09:08 09:08 12:40 WBC (4.5-11.0) K/mm3 RBC 5.74 H (3.65-5.03) M/mm3 Hgb 16.1 H (11.8-15.2) gm/dl Hct 48.8 H D (35.5-45.6) % MCHC (32-34) % RDW 19.3 H (13.2-15.2) % Lymph % (Auto) (13.4-35.0) % [place] % (Auto) (0.0-7.3) % Seg Neuts % (Manual) 5.0 L (40.0-70.0) % Monocytes % (Manual) 17.0 H (0.0-7.3) % Nucleated RBC % (0.0-0.9) % Seg Neutrophils # (1.8-7.7) K/mm3 Seg Neutrophils # Man 0.3 L (1.8-7.7) K/mm3 Lymphocytes # (Manual) (1.2-5.4) K/mm3 Monocytes # (Manual) 0.9 H (0.0-0.8) K/mm3 PT (12.2-14.9) Sec. INR (0.87-1.13) APTT (24.2-36.6) Sec. POC ABG pH (7.35-7.45) POC ABG pCO2 (35-45) POC ABG pO2 (80-105) Sodium 135 L (137-145) mmol/L Chloride 94.6 L (98-107) mmol/L Carbon Dioxide 15 L D (22-30) mmol/L BUN 33 H (9-20) mg/dL Creatinine 1.8 H D (0.8-1.5) mg/dL Glucose 132 H (75-100) mg/dL POC Glucose (70-105) Lactic Acid 9.00 H* (0.7-2.0) mmol/L Calcium (8.4-10.2) mg/dL Magnesium (1.7-2.3) mg/dL AST (5-40) units/L ALT (7-56) units/L Total Creatine Kinase (55-170) units/L CK-MB (CK-2) (0.0-4.0) ng/mL Troponin T (0.00-0.029) ng/mL C-Reactive Protein (0.00-1.30) mg/dL Total Protein (6.3-8.2) g/dL Albumin (3.9-5) g/dL LDL Cholesterol Direct (50-130) mg/dL HDL Cholesterol (40-59) mg/dL Urine Creatinine (0.1-20.0) mg/dL 11/07/16 11/07/16 11/07/16 Range/Units 18:42 18:44 19:30 WBC (4.5-11.0) K/mm3 RBC (3.65-5.03) M/mm3 Hgb (11.8-15.2) gm/dl Hct (35.5-45.6) % MCHC (32-34) % RDW (13.2-15.2) % Lymph % (Auto) (13.4-35.0) % [place] % (Auto) (0.0-7.3) % Seg Neuts % (Manual) (40.0-70.0) % Monocytes % (Manual) (0.0-7.3) % Nucleated RBC % (0.0-0.9) % Seg Neutrophils # (1.8-7.7) K/mm3 Seg Neutrophils # Man (1.8-7.7) K/mm3 Lymphocytes # (Manual) (1.2-5.4) K/mm3 Monocytes # (Manual) (0.0-0.8) K/mm3 PT (12.2-14.9) Sec. INR (0.87-1.13) APTT (24.2-36.6) Sec. POC ABG pH 7.023 L (7.35-7.45) POC ABG pCO2 (35-45) POC ABG pO2 202 H (80-105) Sodium (137-145) mmol/L Chloride (98-107) mmol/L Carbon Dioxide (22-30) mmol/L BUN (9-20) mg/dL Creatinine (0.8-1.5) mg/dL Glucose (75-100) mg/dL POC Glucose < 40 L (70-105) Lactic Acid 15.40 H* (0.7-2.0) mmol/L Calcium (8.4-10.2) mg/dL Magnesium (1.7-2.3) mg/dL AST (5-40) units/L ALT (7-56) units/L Total Creatine Kinase (55-170) units/L CK-MB (CK-2) (0.0-4.0) ng/mL Troponin T (0.00-0.029) ng/mL C-Reactive Protein (0.00-1.30) mg/dL Total Protein (6.3-8.2) g/dL Albumin (3.9-5) g/dL LDL Cholesterol Direct (50-130) mg/dL HDL Cholesterol (40-59) mg/dL Urine Creatinine (0.1-20.0) mg/dL 11/07/16 11/07/16 11/07/16 Range/Units 19:38 19:38 19:38 WBC (4.5-11.0) K/mm3 RBC (3.65-5.03) M/mm3 Hgb (11.8-15.2) gm/dl Hct (35.5-45.6) % MCHC (32-34) % RDW (13.2-15.2) % Lymph % (Auto) (13.4-35.0) % [place] % (Auto) (0.0-7.3) % Seg Neuts % (Manual) (40.0-70.0) % Monocytes % (Manual) (0.0-7.3) % Nucleated RBC % (0.0-0.9) % Seg Neutrophils # (1.8-7.7) K/mm3 Seg Neutrophils # Man (1.8-7.7) K/mm3 Lymphocytes # (Manual) (1.2-5.4) K/mm3 Monocytes # (Manual) (0.0-0.8) K/mm3 PT (12.2-14.9) Sec. INR (0.87-1.13) APTT (24.2-36.6) Sec. POC ABG pH (7.35-7.45) POC ABG pCO2 (35-45) POC ABG pO2 (80-105) Sodium (137-145) mmol/L Chloride 97.0 L (98-107) mmol/L Carbon Dioxide 14 L (22-30) mmol/L BUN 45 H (9-20) mg/dL Creatinine 3.5 H D (0.8-1.5) mg/dL Glucose 148 H (75-100) mg/dL POC Glucose (70-105) Lactic Acid (0.7-2.0) mmol/L Calcium 7.9 L (8.4-10.2) mg/dL Magnesium (1.7-2.3) mg/dL AST 81 H (5-40) units/L ALT (7-56) units/L Total Creatine Kinase 1820 H (55-170) units/L CK-MB (CK-2) 34.5 H (0.0-4.0) ng/mL Troponin T 0.278 H* (0.00-0.029) ng/mL C-Reactive Protein (0.00-1.30) mg/dL Total Protein 4.4 L D (6.3-8.2) g/dL Albumin 2.5 L (3.9-5) g/dL LDL Cholesterol Direct 9 L (50-130) mg/dL HDL Cholesterol 34 L (40-59) mg/dL Urine Creatinine (0.1-20.0) mg/dL 11/07/16 11/07/16 11/07/16 Range/Units 22:24 22:54 23:46 WBC (4.5-11.0) K/mm3 RBC (3.65-5.03) M/mm3 Hgb (11.8-15.2) gm/dl Hct (35.5-45.6) % MCHC (32-34) % RDW (13.2-15.2) % Lymph % (Auto) (13.4-35.0) % [place] % (Auto) (0.0-7.3) % Seg Neuts % (Manual) (40.0-70.0) % Monocytes % (Manual) (0.0-7.3) % Nucleated RBC % (0.0-0.9) % Seg Neutrophils # (1.8-7.7) K/mm3 Seg Neutrophils # Man (1.8-7.7) K/mm3 Lymphocytes # (Manual) (1.2-5.4) K/mm3 Monocytes # (Manual) (0.0-0.8) K/mm3 PT (12.2-14.9) Sec. INR (0.87-1.13) APTT (24.2-36.6) Sec. POC ABG pH 7.327 L (7.35-7.45) POC ABG pCO2 31.4 L (35-45) POC ABG pO2 (80-105) Sodium (137-145) mmol/L Chloride (98-107) mmol/L Carbon Dioxide (22-30) mmol/L BUN (9-20) mg/dL Creatinine (0.8-1.5) mg/dL Glucose (75-100) mg/dL POC Glucose 159 H (70-105) Lactic Acid (0.7-2.0) mmol/L Calcium (8.4-10.2) mg/dL Magnesium (1.7-2.3) mg/dL AST (5-40) units/L ALT (7-56) units/L Total Creatine Kinase (55-170) units/L CK-MB (CK-2) (0.0-4.0) ng/mL Troponin T (0.00-0.029) ng/mL C-Reactive Protein 21.10 H (0.00-1.30) mg/dL Total Protein (6.3-8.2) g/dL Albumin (3.9-5) g/dL LDL Cholesterol Direct (50-130) mg/dL HDL Cholesterol (40-59) mg/dL Urine Creatinine (0.1-20.0) mg/dL 11/08/16 11/08/16 11/08/16 Range/Units 01:15 01:15 02:00 WBC (4.5-11.0) K/mm3 RBC (3.65-5.03) M/mm3 Hgb (11.8-15.2) gm/dl Hct (35.5-45.6) % MCHC (32-34) % RDW (13.2-15.2) % Lymph % (Auto) (13.4-35.0) % [place] % (Auto) (0.0-7.3) % Seg Neuts % (Manual) (40.0-70.0) % Monocytes % (Manual) (0.0-7.3) % Nucleated RBC % (0.0-0.9) % Seg Neutrophils # (1.8-7.7) K/mm3 Seg Neutrophils # Man (1.8-7.7) K/mm3 Lymphocytes # (Manual) (1.2-5.4) K/mm3 Monocytes # (Manual) (0.0-0.8) K/mm3 PT (12.2-14.9) Sec. INR (0.87-1.13) APTT (24.2-36.6) Sec. POC ABG pH (7.35-7.45) POC ABG pCO2 (35-45) POC ABG pO2 (80-105) Sodium (137-145) mmol/L Chloride (98-107) mmol/L Carbon Dioxide 19 L (22-30) mmol/L BUN 51 H (9-20) mg/dL Creatinine 4.4 H (0.8-1.5) mg/dL Glucose 140 H (75-100) mg/dL POC Glucose (70-105) Lactic Acid 6.80 H* (0.7-2.0) mmol/L Calcium 6.6 L D (8.4-10.2) mg/dL Magnesium (1.7-2.3) mg/dL AST 363 H (5-40) units/L ALT 121 H (7-56) units/L Total Creatine Kinase 06919 H (55-170) units/L CK-MB (CK-2) 161.4 H (0.0-4.0) ng/mL Troponin T (0.00-0.029) ng/mL C-Reactive Protein (0.00-1.30) mg/dL Total Protein 4.7 L (6.3-8.2) g/dL Albumin 2.5 L (3.9-5) g/dL LDL Cholesterol Direct (50-130) mg/dL HDL Cholesterol (40-59) mg/dL Urine Creatinine (0.1-20.0) mg/dL 11/08/16 11/08/16 11/08/16 Range/Units 02:00 02:00 02:08 WBC (4.5-11.0) K/mm3 RBC (3.65-5.03) M/mm3 Hgb (11.8-15.2) gm/dl Hct (35.5-45.6) % MCHC (32-34) % RDW (13.2-15.2) % Lymph % (Auto) (13.4-35.0) % [place] % (Auto) (0.0-7.3) % Seg Neuts % (Manual) (40.0-70.0) % Monocytes % (Manual) (0.0-7.3) % Nucleated RBC % (0.0-0.9) % Seg Neutrophils # (1.8-7.7) K/mm3 Seg Neutrophils # Man (1.8-7.7) K/mm3 Lymphocytes # (Manual) (1.2-5.4) K/mm3 Monocytes # (Manual) (0.0-0.8) K/mm3 PT (12.2-14.9) Sec. INR (0.87-1.13) APTT (24.2-36.6) Sec. POC ABG pH (7.35-7.45) POC ABG pCO2 (35-45) POC ABG pO2 (80-105) Sodium (137-145) mmol/L Chloride (98-107) mmol/L Carbon Dioxide (22-30) mmol/L BUN (9-20) mg/dL Creatinine (0.8-1.5) mg/dL Glucose (75-100) mg/dL POC Glucose (70-105) Lactic Acid 7.50 H* (0.7-2.0) mmol/L Calcium (8.4-10.2) mg/dL Magnesium (1.7-2.3) mg/dL AST (5-40) units/L ALT (7-56) units/L Total Creatine Kinase (55-170) units/L CK-MB (CK-2) (0.0-4.0) ng/mL Troponin T 2.120 H* D (0.00-0.029) ng/mL C-Reactive Protein (0.00-1.30) mg/dL Total Protein (6.3-8.2) g/dL Albumin (3.9-5) g/dL LDL Cholesterol Direct (50-130) mg/dL HDL Cholesterol (40-59) mg/dL Urine Creatinine 220.4 H (0.1-20.0) mg/dL 11/08/16 11/08/16 11/08/16 Range/Units 05:18 06:10 06:40 WBC 3.9 L (4.5-11.0) K/mm3 RBC (3.65-5.03) M/mm3 Hgb (11.8-15.2) gm/dl Hct (35.5-45.6) % MCHC 31 L (32-34) % RDW 19.8 H (13.2-15.2) % Lymph % (Auto) (13.4-35.0) % [place] % (Auto) (0.0-7.3) % Seg Neuts % (Manual) 9.0 L (40.0-70.0) % Monocytes % (Manual) 16.0 H (0.0-7.3) % Nucleated RBC % 14.0 H (0.0-0.9) % Seg Neutrophils # (1.8-7.7) K/mm3 Seg Neutrophils # Man 0.4 L (1.8-7.7) K/mm3 Lymphocytes # (Manual) 0.8 L (1.2-5.4) K/mm3 Monocytes # (Manual) (0.0-0.8) K/mm3 PT (12.2-14.9) Sec. INR (0.87-1.13) APTT (24.2-36.6) Sec. POC ABG pH 7.451 H (7.35-7.45) POC ABG pCO2 25.8 L (35-45) POC ABG pO2 (80-105) Sodium (137-145) mmol/L Chloride (98-107) mmol/L Carbon Dioxide (22-30) mmol/L BUN (9-20) mg/dL Creatinine (0.8-1.5) mg/dL Glucose (75-100) mg/dL POC Glucose 55 L (70-105) Lactic Acid (0.7-2.0) mmol/L Calcium (8.4-10.2) mg/dL Magnesium (1.7-2.3) mg/dL AST (5-40) units/L ALT (7-56) units/L Total Creatine Kinase (55-170) units/L CK-MB (CK-2) (0.0-4.0) ng/mL Troponin T (0.00-0.029) ng/mL C-Reactive Protein (0.00-1.30) mg/dL Total Protein (6.3-8.2) g/dL Albumin (3.9-5) g/dL LDL Cholesterol Direct (50-130) mg/dL HDL Cholesterol (40-59) mg/dL Urine Creatinine (0.1-20.0) mg/dL 11/08/16 11/08/16 11/08/16 Range/Units 06:40 06:40 06:40 WBC 2.8 L (4.5-11.0) K/mm3 RBC 3.60 L (3.65-5.03) M/mm3 Hgb 10.1 L (11.8-15.2) gm/dl Hct 32.2 L D (35.5-45.6) % MCHC 31 L (32-34) % RDW 19.4 H (13.2-15.2) % Lymph % (Auto) 45.5 H (13.4-35.0) % [place] % (Auto) 14.1 H (0.0-7.3) % Seg Neuts % (Manual) (40.0-70.0) % Monocytes % (Manual) (0.0-7.3) % Nucleated RBC % (0.0-0.9) % Seg Neutrophils # 1.1 L (1.8-7.7) K/mm3 Seg Neutrophils # Man (1.8-7.7) K/mm3 Lymphocytes # (Manual) (1.2-5.4) K/mm3 Monocytes # (Manual) (0.0-0.8) K/mm3 PT 41.4 H (12.2-14.9) Sec. INR 4.03 H (0.87-1.13) APTT 59.3 H (24.2-36.6) Sec. POC ABG pH (7.35-7.45) POC ABG pCO2 (35-45) POC ABG pO2 (80-105) Sodium (137-145) mmol/L Chloride (98-107) mmol/L Carbon Dioxide (22-30) mmol/L BUN (9-20) mg/dL Creatinine (0.8-1.5) mg/dL Glucose (75-100) mg/dL POC Glucose (70-105) Lactic Acid (0.7-2.0) mmol/L Calcium (8.4-10.2) mg/dL Magnesium 1.60 L (1.7-2.3) mg/dL AST (5-40) units/L ALT (7-56) units/L Total Creatine Kinase (55-170) units/L CK-MB (CK-2) (0.0-4.0) ng/mL Troponin T (0.00-0.029) ng/mL C-Reactive Protein (0.00-1.30) mg/dL Total Protein (6.3-8.2) g/dL Albumin (3.9-5) g/dL LDL Cholesterol Direct (50-130) mg/dL HDL Cholesterol (40-59) mg/dL Urine Creatinine (0.1-20.0) mg/dL 11/08/16 11/08/16 11/08/16 Range/Units 06:40 08:23 08:23 WBC (4.5-11.0) K/mm3 RBC (3.65-5.03) M/mm3 Hgb (11.8-15.2) gm/dl Hct (35.5-45.6) % MCHC (32-34) % RDW (13.2-15.2) % Lymph % (Auto) (13.4-35.0) % [place] % (Auto) (0.0-7.3) % Seg Neuts % (Manual) (40.0-70.0) % Monocytes % (Manual) (0.0-7.3) % Nucleated RBC % (0.0-0.9) % Seg Neutrophils # (1.8-7.7) K/mm3 Seg Neutrophils # Man (1.8-7.7) K/mm3 Lymphocytes # (Manual) (1.2-5.4) K/mm3 Monocytes # (Manual) (0.0-0.8) K/mm3 PT (12.2-14.9) Sec. INR (0.87-1.13) APTT (24.2-36.6) Sec. POC ABG pH (7.35-7.45) POC ABG pCO2 (35-45) POC ABG pO2 (80-105) Sodium 148 H (137-145) mmol/L Chloride 97.5 L (98-107) mmol/L Carbon Dioxide 14 L (22-30) mmol/L BUN 55 H (9-20) mg/dL Creatinine 5.3 H (0.8-1.5) mg/dL Glucose 165 H (75-100) mg/dL POC Glucose (70-105) Lactic Acid (0.7-2.0) mmol/L Calcium 7.6 L D (8.4-10.2) mg/dL Magnesium (1.7-2.3) mg/dL AST 780 H (5-40) units/L ALT 376 H (7-56) units/L Total Creatine Kinase 57266 H (55-170) units/L CK-MB (CK-2) 68.0 H 120.2 H (0.0-4.0) ng/mL Troponin T 2.590 H* D 3.210 H* D (0.00-0.029) ng/mL C-Reactive Protein (0.00-1.30) mg/dL Total Protein 3.4 L D (6.3-8.2) g/dL Albumin 1.6 L (3.9-5) g/dL LDL Cholesterol Direct (50-130) mg/dL HDL Cholesterol (40-59) mg/dL Urine Creatinine (0.1-20.0) mg/dL 11/08/16 Range/Units 08:23 WBC (4.5-11.0) K/mm3 RBC (3.65-5.03) M/mm3 Hgb (11.8-15.2) gm/dl Hct (35.5-45.6) % MCHC (32-34) % RDW (13.2-15.2) % Lymph % (Auto) (13.4-35.0) % [place] % (Auto) (0.0-7.3) % Seg Neuts % (Manual) (40.0-70.0) % Monocytes % (Manual) (0.0-7.3) % Nucleated RBC % (0.0-0.9) % Seg Neutrophils # (1.8-7.7) K/mm3 Seg Neutrophils # Man (1.8-7.7) K/mm3 Lymphocytes # (Manual) (1.2-5.4) K/mm3 Monocytes # (Manual) (0.0-0.8) K/mm3 PT (12.2-14.9) Sec. INR (0.87-1.13) APTT (24.2-36.6) Sec. POC ABG pH (7.35-7.45) POC ABG pCO2 (35-45) POC ABG pO2 (80-105) Sodium (137-145) mmol/L Chloride (98-107) mmol/L Carbon Dioxide (22-30) mmol/L BUN (9-20) mg/dL Creatinine (0.8-1.5) mg/dL Glucose (75-100) mg/dL POC Glucose (70-105) Lactic Acid 20.30 H* (0.7-2.0) mmol/L Calcium (8.4-10.2) mg/dL Magnesium (1.7-2.3) mg/dL AST (5-40) units/L ALT (7-56) units/L Total Creatine Kinase (55-170) units/L CK-MB (CK-2) (0.0-4.0) ng/mL Troponin T (0.00-0.029) ng/mL C-Reactive Protein (0.00-1.30) mg/dL Total Protein (6.3-8.2) g/dL Albumin (3.9-5) g/dL LDL Cholesterol Direct (50-130) mg/dL HDL Cholesterol (40-59) mg/dL Urine Creatinine (0.1-20.0) mg/dL
[2016-11-08] MEDS ORDERED: PROTONIX IV SCH (10:00)
[2016-11-08] MEDS ORDERED: PEPCID IV SCH (10:00)
[2016-11-08] MEDS: NEO-SYNEPHRINE 100 MG in NACL 0.9% 90 ML IV SCH ×2 (10:11→20:02)
[2016-11-08] MEDS: D50W (25GM) IV PRN ×2 (10:27→20:33)
--- NOTE | 2016-11-08 11:07 | Progress Note ---
Assessment and Plan Critically ill.Comfort and supportive measures. F/U Echo. Prognosis: Poor.Discussed in detail with the patient's parents at bedside. - Patient Problems (1) Ventricular fibrillation Current Visit: Yes Status: Acute (2) Cardiac arrest Current Visit: Yes Status: Acute (3) Elevated troponin level Current Visit: Yes Status: Acute (4) Rhabdomyolysis Current Visit: Yes Status: Acute Qualifiers: Rhabdomyolysis type: R Encounter type: E (5) SANFORD (acute kidney injury) Current Visit: Yes Status: Acute (6) Coagulopathy Current Visit: Yes Status: Acute (7) Lactic acid increased Current Visit: Yes Status: Acute (8) Acidosis, metabolic, with respiratory acidosis Current Visit: Yes Status: Acute (9) Acute respiratory failure Current Visit: Yes Status: Acute Qualifiers: Respiratory failure complication: R (10) Nicotine dependence Current Visit: Yes Status: Acute Qualifiers: Nicotine product type: N Substance use status: in withdrawal (11) Peritonitis Current Visit: Yes Status: Acute (12) SBO (small bowel obstruction) Current Visit: Yes Status: Acute Subjective Date of service: 11/08/16 Principal diagnosis: SBO,Cardiac arrest s/p revival Interval history: Patient continues to be critically ill. He is intubated on 100% FiO2 and PEEP of 6. He is deeply comatose. His hemoglobin has gone down to 10.1 he has acute kidney injury with creatinine of 5.3 potassium is normal his mag level is 1.6 troponin was an increased to 0.278, 2.12, 2.59, and 3.21 (status post cardiac arrest) he also [place] [address] with positive MB fractions however CPK-MB indices are negative. He has also developed a coagulopathy with INR of 4.03. He is markedly tachycardic. He is on multiple vasopressors. His blood pressures 102/77 mmHg. He has been severely oliguric. He is on hypothermic blanket. Objective Vital Signs Temp Pulse Pulse Resp Resp BP Pulse Ox 11/08/16 09:01 129 H 17 126/90 11/08/16 09:00 130 H 110/38 100 11/08/16 08:56 130 H 15 11/08/16 08:51 129 H 15 110/38 64 L 11/08/16 08:40 132 H 16 103/49 11/08/16 08:31 133 H 18 90/54 71 L 11/08/16 08:21 131 H 16 146/121 11/08/16 08:11 132 H 18 141/106 11/08/16 08:01 129 H 21 75/44 11/08/16 08:00 102.0 F H 11/08/16 07:51 128 H 18 90/57 11/08/16 07:41 130 H 17 90/57 76 L 11/08/16 07:31 130 H 18 90/57 11/08/16 07:21 130 H 21 71/35 11/08/16 07:11 128 H 35 H 83/32 86 11/08/16 07:00 128 H 17 76/25 99 11/08/16 06:50 127 H 35 H 71/35 99 11/08/16 06:40 127 H 34 H 78/26 99 11/08/16 06:30 129 H 35 H 69/34 98 11/08/16 06:21 139 H 21 88/39 11/08/16 06:11 194 H 37 H 105/45 98 11/08/16 06:01 22 117/98 11/08/16 05:51 110 H 15 117/83 11/08/16 05:40 165 H 39 H 93/38 11/08/16 05:31 178 H 40 H 109/79 74 L 11/08/16 05:20 176 H 45 H 96/57 99 11/08/16 05:11 170 H 40 H 79/55 99 11/08/16 05:01 173 H 41 H 75/25 100 11/08/16 04:51 169 H 42 H 80/61 100 11/08/16 04:41 166 H 38 H 80/61 100 11/08/16 04:36 100.4 F H 11/08/16 04:31 164 H 44 H 92/43 100 11/08/16 04:21 160 H 42 H 147/87 100 11/08/16 04:11 158 H 39 H 147/87 100 11/08/16 04:01 163 H 40 H 150/88 100 11/08/16 04:00 100 11/08/16 03:51 158 H 34 H 81/57 100 11/08/16 03:41 157 H 34 H 81/57 100 11/08/16 03:31 158 H 36 H 89/53 100 06/27/17 03:20 151 H 33 H 89/53 98 11/08/16 03:11 152 H 31 H 80/56 98 11/08/16 03:00 150 H 30 H 87/52 99 11/08/16 02:50 151 H 30 H 90/47 100 11/08/16 02:41 151 H 30 H 85/39 98 11/08/16 02:31 152 H 30 H 65/44 97 11/08/16 02:20 150 H 30 H 70/40 97 11/08/16 02:10 149 H 30 H 66/37 97 11/08/16 02:00 150 H 30 H 86/38 100 11/08/16 01:50 150 H 30 H 74/18 98 11/08/16 01:40 148 H 30 H 89/15 97 11/08/16 01:30 148 H 30 H 86/24 97 11/08/16 01:21 151 H 30 H 98/38 97 11/08/16 01:11 151 H 30 H 98/38 97 11/08/16 01:01 150 H 30 H 114/58 97 11/08/16 00:50 147 H 30 H 71/37 97 11/08/16 00:41 150 H 30 H 78/31 97 11/08/16 00:31 155 H 30 H 79/30 98 11/08/16 00:24 100.1 F H 11/08/16 00:21 156 H 30 H 84/39 99 11/08/16 00:10 160 H 30 H 95/44 99 11/08/16 00:00 167 H 30 H 132/60 100 11/07/16 23:51 169 H 49 H 132/60 98 11/07/16 23:41 168 H 49 H 108/85 98 11/07/16 23:31 163 H 49 H 108/85 99 11/07/16 23:21 159 H 46 H 115/86 99 11/07/16 23:15 157 H 40 H 127/63 99 11/07/16 23:11 155 H 39 H 127/63 99 11/07/16 23:01 159 H 35 H 127/63 99 11/07/16 22:51 155 H 48 H 103/79 99 11/07/16 22:48 150 H 36 H 11/07/16 22:41 153 H 38 H 103/79 99 11/07/16 22:31 153 H 37 H 104/42 99 11/07/16 22:20 153 H 35 H 104/42 99 11/07/16 22:11 153 H 37 H 113/48 99 11/07/16 22:01 154 H 32 H 113/48 100 11/07/16 21:51 152 H 28 H 113/48 100 11/07/16 21:41 152 H 35 H 116/63 100 11/07/16 21:31 152 H 31 H 116/63 98 11/07/16 21:21 148 H 31 H 117/80 98 11/07/16 21:11 146 H 29 H 126/71 98 11/07/16 21:01 152 H 113/48 100 11/07/16 21:00 145 H 30 H 126/71 98 11/07/16 20:51 145 H 30 H 116/67 97 11/07/16 20:41 142 H 29 H 121/70 98 11/07/16 20:30 142 H 30 H 126/71 98 11/07/16 20:21 141 H 30 H 128/64 99 11/07/16 20:11 141 H 30 H 127/59 100 11/07/16 20:00 142 H 30 H 127/59 100 11/07/16 19:51 146 H 27 H 112/60 11/07/16 19:41 147 H 27 H 121/71 11/07/16 19:30 147 H 25 H 121/71 11/07/16 19:21 144 H 30 H 131/65 100 11/07/16 19:11 144 H 30 H 89/38 11/07/16 19:00 143 H 30 H 89/38 11/07/16 18:50 150 H 28 H 89/38 11/07/16 18:43 149 H 85/37 99 11/07/16 18:40 150 H 25 H 85/37 11/07/16 18:30 147 H 21 89/34 98 11/07/16 18:20 145 H 16 91/36 96 11/07/16 18:10 139 H 12 91/36 97 11/07/16 18:06 138 H 88/38 97 11/07/16 18:00 97.4 F L 138 H 12 88/38 97 11/07/16 17:50 140 H 16 88/35 11/07/16 17:48 141 H 13 11/07/16 15:55 98.5 F 149 H 26 H 91/51 99 11/07/16 15:18 97 - Physical Examination General: Other (Deeply comatose, not responding to deep painful stimuli.) HEENT: Positive: Normocephaly Neck: Positive: neck supple, trachea midline Cardiac: Positive: Tachycardia Lungs: Positive: clear to auscultation, No Wheeze, Rales, Rhonchi Neuro: Positive: Other (Deeply comatose, unresponsive) Abdomen: Positive: Distended Skin: Positive: Clear Musculoskeletal: other (Cold) Extremities: Present: Cool - Labs and Meds Cardiac Enzymes 11/07/16 11/07/16 11/08/16 Range/Units 19:38 19:38 01:15 AST 81 H (5-40) units/L CK-MB (CK-2) 34.5 H 161.4 H (0.0-4.0) ng/mL 11/08/16 11/08/16 11/08/16 Range/Units 02:00 06:40 08:23 AST 363 H 780 H (5-40) units/L CK-MB (CK-2) 68.0 H 120.2 H (0.0-4.0) ng/mL Coagulation 11/08/16 Range/Units 06:40 PT 41.4 H (12.2-14.9) Sec. INR 4.03 H (0.87-1.13) APTT 59.3 H (24.2-36.6) Sec. Lipids 11/07/16 Range/Units 19:38 Triglycerides 72 (2-149) mg/dL Cholesterol 57 (50-199) mg/dL HDL Cholesterol 34 L (40-59) mg/dL Cholesterol/HDL Ratio 1.67 % CBC 11/08/16 11/08/16 Range/Units 06:40 06:40 WBC 3.9 L 2.8 L (4.5-11.0) K/mm3 RBC 4.52 3.60 L (3.65-5.03) M/mm3 Hgb 12.5 D 10.1 L (11.8-15.2) gm/dl Hct 40.5 D 32.2 L D (35.5-45.6) % Plt Count 195 177 (140-440) K/mm3 Lymph # 1.3 (1.2-5.4) K/mm3 [place] # 0.4 (0.0-0.8) K/mm3 Eos # 0.0 (0.0-0.4) K/mm3 Baso # 0.0 (0.0-0.1) K/mm3 Comprehensive Metabolic Panel 11/07/16 11/08/16 11/08/16 Range/Units 19:38 02:00 06:40 Sodium 145 D 141 148 H (137-145) mmol/L Potassium 4.0 4.2 4.7 (3.6-5.0) mmol/L Chloride 97.0 L 98.3 97.5 L (98-107) mmol/L Carbon Dioxide 14 L 19 L 14 L (22-30) mmol/L BUN 45 H 51 H 55 H (9-20) mg/dL Creatinine 3.5 H D 4.4 H 5.3 H (0.8-1.5) mg/dL Glucose 148 H 140 H 165 H (75-100) mg/dL Calcium 7.9 L 6.6 L D 7.6 L D (8.4-10.2) mg/dL AST 81 H 363 H 780 H (5-40) units/L ALT 46 121 H 376 H (7-56) units/L Alkaline Phosphatase 46 38 35 (35-129) units/L Total Protein 4.4 L D 4.7 L 3.4 L D (6.3-8.2) g/dL Albumin 2.5 L 2.5 L 1.6 L (3.9-5) g/dL - Imaging and Cardiology EKG: report reviewed, image reviewed - Telemetry EKG Rhythm: Sinus Tachycardia - EKG Sinus rhythms and dysrhythmias: sinus tachycardia
--- NOTE | 2016-11-08 11:18 | Progress Note ---
Assessment and Plan - Patient Problems (1) Severe sepsis Current Visit: Yes Status: Acute Plan to address problem: - broadened AB's coverage - trend lactate - aggressive volume resuscitation - follow 2D ECHO re: IVC diameter and volume status - continue alkalanized fluids - continue multiple vasopressors with target MAP > 60mmHg (2) Metabolic acidosis Current Visit: Yes Status: Acute Plan to address problem: - continue alkalanized fluids - address SANFORD - nephrology consulted (3) GI bleeding Current Visit: Yes Status: Acute Qualifiers: GI bleed type/associated pathology: G Gastritis type: G Plan to address problem: - started on protonix drip - follow H&H - likely too unstable for endoscopy and no gross bleeding (4) [place] (acute kidney injury) Current Visit: Yes Status: Acute Plan to address problem: - oliguric now - FENA calculated at 0.2% last night - continue volume resuscitation with occasional boluses (5) Cardiac arrest Current Visit: Yes Status: Acute Plan to address problem: - s/p another CODE BLUE that i ran and thankfully there was ROSC - cardiology also on case (6) SBO (small bowel obstruction) Current Visit: Yes Status: Acute Plan to address problem: - too unstable for surgery now - was a partial SBO - patient reportedly had pulled out NGT and was eating in room prior (7) Discharge planning issues Current Visit: Yes Status: Acute Plan to address problem: - prognosis grave; he is critically ill on multiple vasoprssors and at high risk for further deterioration including ....55 mins CCT today so far Subjective Date of service: 11/08/16 Principal diagnosis: Acute Respiratory Failure on MVS; SBO,Cardiac arrest s/p revival Interval history: Seen and examined at bedside; 24 hour events reviewed; nursing and respiratory care staff consulted; s/p CODE Blue early this morning and responded to CPR/ ACLS protocols; remains encephalopathic; with severe sepsis; source unclear; i fear significant neurologic insult; bloody emesis / coffee ground emesis; father in room and care plan discussed at length Objective Vital Signs - 12hr 11/07/16 11/07/16 11/07/16 23:21 23:31 23:41 Temperature Pulse Rate 159 H 163 H 168 H Pulse Rate [ Bilateral Throughout] Respiratory 46 H 49 H 49 H Rate Respiratory Rate [Bilateral Throughout] Blood Pressure 115/86 108/85 108/85 O2 Sat by Pulse 99 99 98 Oximetry 11/07/16 11/08/16 11/08/16 23:51 00:00 00:10 Temperature Pulse Rate 169 H 167 H 160 H Pulse Rate [ Bilateral Throughout] Respiratory 49 H 30 H 30 H Rate Respiratory Rate [Bilateral Throughout] Blood Pressure 132/60 132/60 95/44 O2 Sat by Pulse 98 100 99 Oximetry 11/08/16 11/08/16 11/08/16 00:21 00:24 00:31 Temperature 100.1 F H Pulse Rate 156 H 155 H Pulse Rate [ Bilateral Throughout] Respiratory 30 H 30 H Rate Respiratory Rate [Bilateral Throughout] Blood Pressure 84/39 79/30 O2 Sat by Pulse 99 98 Oximetry 11/08/16 11/08/16 11/08/16 00:41 00:50 01:01 Temperature Pulse Rate 150 H 147 H 150 H Pulse Rate [ Bilateral Throughout] Respiratory 30 H 30 H 30 H Rate Respiratory Rate [Bilateral Throughout] Blood Pressure 78/31 71/37 114/58 O2 Sat by Pulse 97 97 97 Oximetry 11/08/16 11/08/16 11/08/16 01:11 01:21 01:30 Temperature Pulse Rate 151 H 151 H 148 H Pulse Rate [ Bilateral Throughout] Respiratory 30 H 30 H 30 H Rate Respiratory Rate [Bilateral Throughout] Blood Pressure 98/38 98/38 86/24 O2 Sat by Pulse 97 97 97 Oximetry 11/08/16 11/08/16 11/08/16 01:40 01:50 02:00 Temperature Pulse Rate 148 H 150 H 150 H Pulse Rate [ Bilateral Throughout] Respiratory 30 H 30 H 30 H Rate Respiratory Rate [Bilateral Throughout] Blood Pressure 89/15 74/18 86/38 O2 Sat by Pulse 97 98 100 Oximetry 11/08/16 11/08/16 11/08/16 02:10 02:20 02:31 Temperature Pulse Rate 149 H 150 H 152 H Pulse Rate [ Bilateral Throughout] Respiratory 30 H 30 H 30 H Rate Respiratory Rate [Bilateral Throughout] Blood Pressure 66/37 70/40 65/44 O2 Sat by Pulse 97 97 97 Oximetry 11/08/16 11/08/16 11/08/16 02:41 02:50 03:00 Temperature Pulse Rate 151 H 151 H 150 H Pulse Rate [ Bilateral Throughout] Respiratory 30 H 30 H 30 H Rate Respiratory Rate [Bilateral Throughout] Blood Pressure 85/39 90/47 87/52 O2 Sat by Pulse 98 100 99 Oximetry 11/08/16 11/08/16 11/08/16 03:11 03:20 03:31 Temperature Pulse Rate 152 H 151 H 158 H Pulse Rate [ Bilateral Throughout] Respiratory 31 H 33 H 36 H Rate Respiratory Rate [Bilateral Throughout] Blood Pressure 80/56 89/53 89/53 O2 Sat by Pulse 98 98 100 Oximetry 11/08/16 11/08/16 11/08/16 03:41 03:51 04:00 Temperature Pulse Rate 157 H 158 H Pulse Rate [ Bilateral Throughout] Respiratory 34 H 34 H Rate Respiratory Rate [Bilateral Throughout] Blood Pressure 81/57 81/57 O2 Sat by Pulse 100 100 100 Oximetry 11/08/16 11/08/16 11/08/16 04:01 04:11 04:21 Temperature Pulse Rate 163 H 158 H 160 H Pulse Rate [ Bilateral Throughout] Respiratory 40 H 39 H 42 H Rate Respiratory Rate [Bilateral Throughout] Blood Pressure 150/88 147/87 147/87 O2 Sat by Pulse 100 100 100 Oximetry 11/08/16 11/08/16 11/08/16 04:31 04:36 04:41 Temperature 100.4 F H Pulse Rate 164 H 166 H Pulse Rate [ Bilateral Throughout] Respiratory 44 H 38 H Rate Respiratory Rate [Bilateral Throughout] Blood Pressure 92/43 80/61 O2 Sat by Pulse 100 100 Oximetry 11/08/16 11/08/16 11/08/16 04:51 05:01 05:11 Temperature Pulse Rate 169 H 173 H 170 H Pulse Rate [ Bilateral Throughout] Respiratory 42 H 41 H 40 H Rate Respiratory Rate [Bilateral Throughout] Blood Pressure 80/61 75/25 79/55 O2 Sat by Pulse 100 100 99 Oximetry 11/08/16 11/08/16 11/08/16 05:20 05:31 05:40 Temperature Pulse Rate 176 H 178 H 165 H Pulse Rate [ Bilateral Throughout] Respiratory 45 H 40 H 39 H Rate Respiratory Rate [Bilateral Throughout] Blood Pressure 96/57 109/79 93/38 O2 Sat by Pulse 99 74 L Oximetry 11/08/16 11/08/16 11/08/16 05:51 06:01 06:11 Temperature Pulse Rate 110 H 194 H Pulse Rate [ Bilateral Throughout] Respiratory 15 22 37 H Rate Respiratory Rate [Bilateral Throughout] Blood Pressure 117/83 117/98 105/45 O2 Sat by Pulse 98 Oximetry 11/08/16 11/08/16 11/08/16 06:21 06:30 06:40 Temperature Pulse Rate 139 H 129 H 127 H Pulse Rate [ Bilateral Throughout] Respiratory 21 35 H 34 H Rate Respiratory Rate [Bilateral Throughout] Blood Pressure 88/39 69/34 78/26 O2 Sat by Pulse 98 99 Oximetry 11/08/16 11/08/16 11/08/16 06:50 07:00 07:11 Temperature Pulse Rate 127 H 128 H 128 H Pulse Rate [ Bilateral Throughout] Respiratory 35 H 17 35 H Rate Respiratory Rate [Bilateral Throughout] Blood Pressure 71/35 76/25 83/32 O2 Sat by Pulse 99 99 86 Oximetry 11/08/16 11/08/16 11/08/16 07:21 07:31 07:41 Temperature Pulse Rate 130 H 130 H 130 H Pulse Rate [ Bilateral Throughout] Respiratory 21 18 17 Rate Respiratory Rate [Bilateral Throughout] Blood Pressure 71/35 90/57 90/57 O2 Sat by Pulse 76 L Oximetry 11/08/16 11/08/16 11/08/16 07:51 08:00 08:01 Temperature 102.0 F H Pulse Rate 128 H 129 H Pulse Rate [ Bilateral Throughout] Respiratory 18 21 Rate Respiratory Rate [Bilateral Throughout] Blood Pressure 90/57 75/44 O2 Sat by Pulse Oximetry 11/08/16 11/08/16 11/08/16 08:11 08:21 08:31 Temperature Pulse Rate 132 H 131 H 133 H Pulse Rate [ Bilateral Throughout] Respiratory 18 16 18 Rate Respiratory Rate [Bilateral Throughout] Blood Pressure 141/106 146/121 90/54 O2 Sat by Pulse 71 L Oximetry 11/08/16 11/08/16 11/08/16 08:40 08:51 08:56 Temperature Pulse Rate 132 H 129 H Pulse Rate [ 130 H Bilateral Throughout] Respiratory 16 15 Rate Respiratory 15 Rate [Bilateral Throughout] Blood Pressure 103/49 110/38 O2 Sat by Pulse 64 L Oximetry 11/08/16 11/08/16 09:00 09:01 Temperature Pulse Rate 130 H 129 H Pulse Rate [ Bilateral Throughout] Respiratory 17 Rate Respiratory Rate [Bilateral Throughout] Blood Pressure 110/38 126/90 O2 Sat by Pulse 100 Oximetry Constitutional: other (encephalopathic with increased work of breathing) Eyes: non-icteric ENT: oropharynx moist Neck: supple, no lymphadenopathy Effort: very labored Ascultation: Bilateral: rales Cardiovascular: regular rate and rhythm, other (SVT at 140's) Gastrointestinal: hypoactive bowel sounds, soft, non-distended Integumentary: normal Extremities: no cyanosis, no edema, pulses normal, no ischemia or petechiae Neurologic: unable to assess Psychiatric: other (emncephalopathic) CBC and BMP: 11/08/16 06:40 11/08/16 06:40 ABG, PT/INR, D-dimer: ABG POC ABG pH 7.451 (7.35-7.45) H 11/08/16 05:18 POC ABG pCO2 25.8 (35-45) L 11/08/16 05:18 POC ABG pO2 94 (80-105) 11/08/16 05:18 POC ABG HCO3 18.0 11/08/16 05:18 POC ABG Total CO2 19 11/08/16 05:18 POC ABG O2 Sat 98 11/08/16 05:18 PT/INR, D-dimer PT 41.4 Sec. (12.2-14.9) H 11/08/16 06:40 INR 4.03 (0.87-1.13) H 11/08/16 06:40 Abnormal lab findings: Abnormal Labs 11/07/16 11/07/16 11/07/16 09:08 09:08 12:40 WBC RBC 5.74 H Hgb 16.1 H Hct 48.8 H D MCHC RDW 19.3 H Lymph % (Auto) [place] % (Auto) Seg Neuts % (Manual) 5.0 L Monocytes % (Manual) 17.0 H Nucleated RBC % Seg Neutrophils # Seg Neutrophils # Man 0.3 L Lymphocytes # (Manual) Monocytes # (Manual) 0.9 H PT INR APTT POC ABG pH POC ABG pCO2 POC ABG pO2 Sodium 135 L Chloride 94.6 L Carbon Dioxide 15 L D BUN 33 H Creatinine 1.8 H D Glucose 132 H POC Glucose Lactic Acid 9.00 H* Calcium Magnesium AST ALT Total Creatine Kinase CK-MB (CK-2) CK-MB (CK-2) Rel Index Troponin T C-Reactive Protein Total Protein Albumin LDL Cholesterol Direct HDL Cholesterol Urine Creatinine 11/07/16 11/07/16 11/07/16 18:42 18:44 19:30 WBC RBC Hgb Hct MCHC RDW Lymph % (Auto) [place] % (Auto) Seg Neuts % (Manual) Monocytes % (Manual) Nucleated RBC % Seg Neutrophils # Seg Neutrophils # Man Lymphocytes # (Manual) Monocytes # (Manual) PT INR APTT POC ABG pH 7.023 L POC ABG pCO2 POC ABG pO2 202 H Sodium Chloride Carbon Dioxide BUN Creatinine Glucose POC Glucose < 40 L Lactic Acid 15.40 H* Calcium Magnesium AST ALT Total Creatine Kinase CK-MB (CK-2) CK-MB (CK-2) Rel Index Troponin T C-Reactive Protein Total Protein Albumin LDL Cholesterol Direct HDL Cholesterol Urine Creatinine 11/07/16 11/07/16 11/07/16 19:38 19:38 19:38 WBC RBC Hgb Hct MCHC RDW Lymph % (Auto) [place] % (Auto) Seg Neuts % (Manual) Monocytes % (Manual) Nucleated RBC % Seg Neutrophils # Seg Neutrophils # Man Lymphocytes # (Manual) Monocytes # (Manual) PT INR APTT POC ABG pH POC ABG pCO2 POC ABG pO2 Sodium Chloride 97.0 L Carbon Dioxide 14 L BUN 45 H Creatinine 3.5 H D Glucose 148 H POC Glucose Lactic Acid Calcium 7.9 L Magnesium AST 81 H ALT Total Creatine Kinase 1820 H CK-MB (CK-2) 34.5 H CK-MB (CK-2) Rel Index Troponin T 0.278 H* C-Reactive Protein Total Protein 4.4 L D Albumin 2.5 L LDL Cholesterol Direct 9 L HDL Cholesterol 34 L Urine Creatinine 11/07/16 11/07/16 11/07/16 22:24 22:54 23:46 WBC RBC Hgb Hct MCHC RDW Lymph % (Auto) [place] % (Auto) Seg Neuts % (Manual) Monocytes % (Manual) Nucleated RBC % Seg Neutrophils # Seg Neutrophils # Man Lymphocytes # (Manual) Monocytes # (Manual) PT INR APTT POC ABG pH 7.327 L POC ABG pCO2 31.4 L POC ABG pO2 Sodium Chloride Carbon Dioxide BUN Creatinine Glucose POC Glucose 159 H Lactic Acid Calcium Magnesium AST ALT Total Creatine Kinase CK-MB (CK-2) CK-MB (CK-2) Rel Index Troponin T C-Reactive Protein 21.10 H Total Protein Albumin LDL Cholesterol Direct HDL Cholesterol Urine Creatinine 11/08/16 11/08/1617 01:15 01:15 02:00 WBC RBC Hgb Hct MCHC RDW Lymph % (Auto) [place] % (Auto) Seg Neuts % (Manual) Monocytes % (Manual) Nucleated RBC % Seg Neutrophils # Seg Neutrophils # Man Lymphocytes # (Manual) Monocytes # (Manual) PT INR APTT POC ABG pH POC ABG pCO2 POC ABG pO2 Sodium Chloride Carbon Dioxide 19 L BUN 51 H Creatinine 4.4 H Glucose 140 H POC Glucose Lactic Acid 6.80 H* Calcium 6.6 L D Magnesium AST 363 H ALT 121 H Total Creatine Kinase 09035 H CK-MB (CK-2) 161.4 H CK-MB (CK-2) Rel Index Troponin T C-Reactive Protein Total Protein 4.7 L Albumin 2.5 L LDL Cholesterol Direct HDL Cholesterol Urine Creatinine 11/08/16 11/08/16 11/08/16 02:00 02:00 02:08 WBC RBC Hgb Hct MCHC RDW Lymph % (Auto) [place] % (Auto) Seg Neuts % (Manual) Monocytes % (Manual) Nucleated RBC % Seg Neutrophils # Seg Neutrophils # Man Lymphocytes # (Manual) Monocytes # (Manual) PT INR APTT POC ABG pH POC ABG pCO2 POC ABG pO2 Sodium Chloride Carbon Dioxide BUN Creatinine Glucose POC Glucose Lactic Acid 7.50 H* Calcium Magnesium AST ALT Total Creatine Kinase CK-MB (CK-2) CK-MB (CK-2) Rel Index Troponin T 2.120 H* D C-Reactive Protein Total Protein Albumin LDL Cholesterol Direct HDL Cholesterol Urine Creatinine 220.4 H 11/08/16 11/08/16 11/08/16 05:18 06:10 06:40 WBC 3.9 L RBC Hgb Hct MCHC 31 L RDW 19.8 H Lymph % (Auto) [place] % (Auto) Seg Neuts % (Manual) 9.0 L Monocytes % (Manual) 16.0 H Nucleated RBC % 14.0 H Seg Neutrophils # Seg Neutrophils # Man 0.4 L Lymphocytes # (Manual) 0.8 L Monocytes # (Manual) PT INR APTT POC ABG pH 7.451 H POC ABG pCO2 25.8 L POC ABG pO2 Sodium Chloride Carbon Dioxide BUN Creatinine Glucose POC Glucose 55 L Lactic Acid Calcium Magnesium AST ALT Total Creatine Kinase CK-MB (CK-2) CK-MB (CK-2) Rel Index Troponin T C-Reactive Protein Total Protein Albumin LDL Cholesterol Direct HDL Cholesterol Urine Creatinine 11/08/16 11/08/16 11/08/16 06:40 06:40 06:40 WBC 2.8 L RBC 3.60 L Hgb 10.1 L Hct 32.2 L D MCHC 31 L RDW 19.4 H Lymph % (Auto) 45.5 H [place] % (Auto) 14.1 H Seg Neuts % (Manual) Monocytes % (Manual) Nucleated RBC % Seg Neutrophils # 1.1 L Seg Neutrophils # Man Lymphocytes # (Manual) Monocytes # (Manual) PT 41.4 H INR 4.03 H APTT 59.3 H POC ABG pH POC ABG pCO2 POC ABG pO2 Sodium Chloride Carbon Dioxide BUN Creatinine Glucose POC Glucose Lactic Acid Calcium Magnesium 1.60 L AST ALT Total Creatine Kinase CK-MB (CK-2) CK-MB (CK-2) Rel Index Troponin T C-Reactive Protein Total Protein Albumin LDL Cholesterol Direct HDL Cholesterol Urine Creatinine 11/08/16 11/08/16 11/08/16 06:40 08:23 08:23 WBC RBC Hgb Hct MCHC RDW Lymph % (Auto) [place] % (Auto) Seg Neuts % (Manual) Monocytes % (Manual) Nucleated RBC % Seg Neutrophils # Seg Neutrophils # Man Lymphocytes # (Manual) Monocytes # (Manual) PT INR APTT POC ABG pH POC ABG pCO2 POC ABG pO2 Sodium 148 H Chloride 97.5 L Carbon Dioxide 14 L BUN 55 H Creatinine 5.3 H Glucose 165 H POC Glucose Lactic Acid Calcium 7.6 L D Magnesium AST 780 H ALT 376 H Total Creatine Kinase 22753 H 1980 H CK-MB (CK-2) 68.0 H 120.2 H CK-MB (CK-2) Rel Index 6.0 H Troponin T 2.590 H* D 3.210 H* D C-Reactive Protein Total Protein 3.4 L D Albumin 1.6 L LDL Cholesterol Direct HDL Cholesterol Urine Creatinine 11/08/16 11/08/16 08:23 10:16 WBC RBC Hgb Hct MCHC RDW Lymph % (Auto) [place] % (Auto) Seg Neuts % (Manual) Monocytes % (Manual) Nucleated RBC % Seg Neutrophils # Seg Neutrophils # Man Lymphocytes # (Manual) Monocytes # (Manual) PT INR APTT POC ABG pH POC ABG pCO2 POC ABG pO2 Sodium Chloride Carbon Dioxide BUN Creatinine Glucose POC Glucose < 40 L Lactic Acid 20.30 H* Calcium Magnesium AST ALT Total Creatine Kinase CK-MB (CK-2) CK-MB (CK-2) Rel Index Troponin T C-Reactive Protein Total Protein Albumin LDL Cholesterol Direct HDL Cholesterol Urine Creatinine Chest x-ray: image reviewed
--- NOTE | 2016-11-08 11:52 | Event Note ---
Date: 11/08/16 Pt is gravely ill, according to nurse unresponsive, neuro consult pending, prognosis guarded.
[2016-11-08 12:13] LABS: ISTAT Base Excess -11; ISTAT PH 7.294 (7.35-7.45); ISTAT PO2 201 (80-105); ISTAT SO2 100; ISTAT TCO2 16
[2016-11-08] MEDS ORDERED: D10W 1,000 ML IV ONE (12:28)
[2016-11-08] MEDS ORDERED: INTROPIN DRIP 800 MG/D5W 250 ML IV ONE (12:35)
[2016-11-08] MEDS ORDERED: ATROPINE 0.1% (CARDIAC) ONE (12:35)
--- NOTE | 2016-11-08 12:59 | Consultation ---
History of Present Illness Consult date: 11/08/16 Requesting physician: ALEXANDRE VASQUEZ Reason for Consult: AMS Chief complaint: AMS limits direct hx History of present illness: 21 YO Male admit 11/06 w/ ab pain/N/V-PSBO c/b cardiac arrest after giving anesthesia and recurrent 11/08 AM. Sxc of AMS are constant. There are no clear aggravating, relieving or temporal factors. Severity causing coma. Past History Past Medical History: other (Nicotine Dependence) Past Surgical History: bowel surgery Social history: single, lives with family, smoking Family history: no significant family history Medications and Allergies Allergies Allergy/AdvReac Type Severity Reaction Status Date / Time Fish Containing Products Allergy Swelling Verified 11/06/16 09:08 Home Medications Medication Instructions Recorded Confirmed Last Taken Type No Known Home Medications [No 11/06/16 11/06/16 Unknown History Reported Home Medications] Active Meds: Active Medications Acetaminophen (Tylenol) 650 mg [place] Q6H PRN PRN Reason: Fever >101 Albuterol/Ipratropium (Duoneb 0.5 Mg-3 Mg/3 Ml Soln) 1 ampul IH Q8HRT JOSELIN Last Admin: 11/08/16 08:56 Dose: 1 ampul Dextrose (D50w (25gm)) 50 ml IV PRN PRN PRN Reason: Hypoglycemia Last Admin: 11/08/16 10:27 Dose: 50 ml Hydrophilic Ointment (Vaseline Lip Therapy) 1 applic TP Q2HR PRN PRN Reason: Dry Lips Dopamine HCl/Dextrose (Intropin Drip 800 Mg/D5w 250 Ml) 800 mg in 250 mls @ 12.885 mls/hr IV TITR JOSELIN; 8 MCG/KG/MIN PRN Reason: Protocol Last Titration: 11/08/16 02:05 Dose: Infused Sodium Bicarbonate 150 meq/ (Dextrose) 1,150 mls @ 150 mls/hr IV DIRECT JOSELIN Last Admin: 11/07/16 20:40 Dose: 150 mls/hr Fentanyl Citrate (Fentanyl Drip Premix) 2,000 mcg in 100 mls @ 2.148 mls/hr IV TITR JOSELIN; 0.5 MCG/KG/HR PRN Reason: Protocol Last Titration: 11/08/16 06:05 Dose: 0 mcg/kg/hr, 0 mls/hr Propofol (Diprivan 10 Mg/Ml) 1,000 mg in 100 mls @ 2.577 mls/hr IV TITR JOSELIN; 5 MCG/KG/MIN PRN Reason: Protocol Last Titration: 11/08/16 02:10 Dose: 0 mcg/kg/min, 0 mls/hr Piperacillin Sod/Tazobactam Sod (Zosyn/Ns 2.25 Gm/50ml) 2.25 gm in 50 mls @ 100 mls/hr IV Q8HR JOSELIN PRN Reason: Protocol Last Admin: 11/08/16 00:15 Dose: 100 mls/hr Vasopressin 20 unit/ Sodium (Chloride) 101 mls @ 9.09 mls/hr IV TITR JOSELIN; 0.03 UNITS/MIN PRN Reason: Protocol Last Admin: 11/08/16 09:13 Dose: 0.03 units/min, 9.09 mls/hr Pantoprazole Sodium 80 mg/ (Sodium Chloride) 100 mls @ 10 mls/hr IV DIRECT JOSELIN PRN Reason: 8 MG/HR Phenylephrine HCl 100 mg/ (Sodium Chloride) 100 mls @ 3 mls/hr IV TITR JOSELIN; 50 MCG/MIN PRN Reason: Protocol Last Admin: 11/08/16 10:11 Dose: 180 mcg/min, 10.8 mls/hr Norepinephrine 8 mg/ Sodium (Chloride) 250 mls @ 3.75 mls/hr IV TITR JOSELIN; 2 MCG /MIN PRN Reason: Protocol Dextrose (D10w) 1,000 mls @ 75 mls/hr IV DIRECT JOSELIN Morphine Sulfate (Morphine) 2 mg IV Q4H PRN PRN Reason: Pain , Severe (7-10) Multi-Ingred Cream/Lotion/Oil/Oint (Artificial Tears Ophth Oint) 1 applic OU Q4HR PRN PRN Reason: Dry Eye(s) Review of Systems ROS unobtainable: due to endotracheal tube, due to mental status Physical Examination - Vital Signs Vital Signs: Vital Signs Temp Pulse Resp BP Pulse Ox 97.8 F 68 18 143/77 99 11/06/16 05:20 11/06/16 05:20 11/06/16 05:20 11/06/16 05:20 11/06/16 05:20 - Constitutional General appearance: acutely ill - EENT EENT: Present: ATNC, mucous membranes dry - Respiratory Respiratory: Present: no respiratory distress, decreased breath sounds - Cardiovascular Cardiovascular: Present: regular rate Extremities: Present: no peripheral edema bilatateraly, no clubbing, cyanosis, no inflammation, no ischemia or petechiae - Gastrointestinal Gastrointestinal: Present: normoactive bowel sounds, soft, non-distended - Integumentary Integumentary: Present: normal - Neurologic Cranial nerve examination: other (no pupil reflex, no corneal reflex, no OCR, no gag reflex) Detailed motor examination: other (no movement to proximal/distal noxious stimulation) Results - Laboratory Findings CBC and BMP: 11/08/16 06:40 11/08/16 06:40 Abnormal Lab Findings: Abnormal Labs 11/07/16 11/07/16 11/07/16 09:08 09:08 12:40 WBC RBC 5.74 H Hgb 16.1 H Hct 48.8 H D MCHC RDW 19.3 H Lymph % (Auto) Mckinley % (Auto) Seg Neuts % (Manual) 5.0 L Monocytes % (Manual) 17.0 H Nucleated RBC % Seg Neutrophils # Seg Neutrophils # Man 0.3 L Lymphocytes # (Manual) Monocytes # (Manual) 0.9 H PT INR APTT POC ABG pH POC ABG pCO2 POC ABG pO2 Sodium 135 L Chloride 94.6 L Carbon Dioxide 15 L D BUN 33 H Creatinine 1.8 H D Glucose 132 H POC Glucose Lactic Acid 9.00 H* Calcium Magnesium AST ALT Total Creatine Kinase CK-MB (CK-2) CK-MB (CK-2) Rel Index Troponin T C-Reactive Protein Total Protein Albumin LDL Cholesterol Direct HDL Cholesterol Urine Creatinine 11/07/16 11/07/16 11/07/16 18:42 18:44 19:30 WBC RBC Hgb Hct MCHC RDW Lymph % (Auto) Mckinley % (Auto) Seg Neuts % (Manual) Monocytes % (Manual) Nucleated RBC % Seg Neutrophils # Seg Neutrophils # Man Lymphocytes # (Manual) Monocytes # (Manual) PT INR APTT POC ABG pH 7.023 L POC ABG pCO2 POC ABG pO2 202 H Sodium Chloride Carbon Dioxide BUN Creatinine Glucose POC Glucose < 40 L Lactic Acid 15.40 H* Calcium Magnesium AST ALT Total Creatine Kinase CK-MB (CK-2) CK-MB (CK-2) Rel Index Troponin T C-Reactive Protein Total Protein Albumin LDL Cholesterol Direct HDL Cholesterol Urine Creatinine 11/07/16 11/07/16 11/07/16 19:38 19:38 19:38 WBC RBC Hgb Hct MCHC RDW Lymph % (Auto) Mckinley % (Auto) Seg Neuts % (Manual) Monocytes % (Manual) Nucleated RBC % Seg Neutrophils # Seg Neutrophils # Man Lymphocytes # (Manual) Monocytes # (Manual) PT INR APTT POC ABG pH POC ABG pCO2 POC ABG pO2 Sodium Chloride 97.0 L Carbon Dioxide 14 L BUN 45 H Creatinine 3.5 H D Glucose 148 H POC Glucose Lactic Acid Calcium 7.9 L Magnesium AST 81 H ALT Total Creatine Kinase 1820 H CK-MB (CK-2) 34.5 H CK-MB (CK-2) Rel Index Troponin T 0.278 H* C-Reactive Protein Total Protein 4.4 L D Albumin 2.5 L LDL Cholesterol Direct 9 L HDL Cholesterol 34 L Urine Creatinine 11/07/16 11/07/16 11/07/16 22:24 22:54 23:46 WBC RBC Hgb Hct MCHC RDW Lymph % (Auto) Mckinley % (Auto) Seg Neuts % (Manual) Monocytes % (Manual) Nucleated RBC % Seg Neutrophils # Seg Neutrophils # Man Lymphocytes # (Manual) Monocytes # (Manual) PT INR APTT POC ABG pH 7.327 L POC ABG pCO2 31.4 L POC ABG pO2 Sodium Chloride Carbon Dioxide BUN Creatinine Glucose POC Glucose 159 H Lactic Acid Calcium Magnesium AST ALT Total Creatine Kinase CK-MB (CK-2) CK-MB (CK-2) Rel Index Troponin T C-Reactive Protein 21.10 H Total Protein Albumin LDL Cholesterol Direct HDL Cholesterol Urine Creatinine 11/08/16 11/08/16 11/08/16 01:15 01:15 02:00 WBC RBC Hgb Hct MCHC RDW Lymph % (Auto) Mckinley % (Auto) Seg Neuts % (Manual) Monocytes % (Manual) Nucleated RBC % Seg Neutrophils # Seg Neutrophils # Man Lymphocytes # (Manual) Monocytes # (Manual) PT INR APTT POC ABG pH POC ABG pCO2 POC ABG pO2 Sodium Chloride Carbon Dioxide 19 L BUN 51 H Creatinine 4.4 H Glucose 140 H POC Glucose Lactic Acid 6.80 H* Calcium 6.6 L D Magnesium AST 363 H ALT 121 H Total Creatine Kinase 50267 H CK-MB (CK-2) 161.4 H CK-MB (CK-2) Rel Index Troponin T C-Reactive Protein Total Protein 4.7 L Albumin 2.5 L LDL Cholesterol Direct HDL Cholesterol Urine Creatinine 11/08/16 11/08/16 11/08/16 02:00 02:00 02:08 WBC RBC Hgb Hct MCHC RDW Lymph % (Auto) Mckinley % (Auto) Seg Neuts % (Manual) Monocytes % (Manual) Nucleated RBC % Seg Neutrophils # Seg Neutrophils # Man Lymphocytes # (Manual) Monocytes # (Manual) PT INR APTT POC ABG pH POC ABG pCO2 POC ABG pO2 Sodium Chloride Carbon Dioxide BUN Creatinine Glucose POC Glucose Lactic Acid 7.50 H* Calcium Magnesium AST ALT Total Creatine Kinase CK-MB (CK-2) CK-MB (CK-2) Rel Index Troponin T 2.120 H* D C-Reactive Protein Total Protein Albumin LDL Cholesterol Direct HDL Cholesterol Urine Creatinine 220.4 H 11/08/16 11/08/16 11/08/16 05:18 06:10 06:40 WBC 3.9 L RBC Hgb Hct MCHC 31 L RDW 19.8 H Lymph % (Auto) Mckinley % (Auto) Seg Neuts % (Manual) 9.0 L Monocytes % (Manual) 16.0 H Nucleated RBC % 14.0 H Seg Neutrophils # Seg Neutrophils # Man 0.4 L Lymphocytes # (Manual) 0.8 L Monocytes # (Manual) PT INR APTT POC ABG pH 7.451 H POC ABG pCO2 25.8 L POC ABG pO2 Sodium Chloride Carbon Dioxide BUN Creatinine Glucose POC Glucose 55 L Lactic Acid Calcium Magnesium AST ALT Total Creatine Kinase CK-MB (CK-2) CK-MB (CK-2) Rel Index Troponin T C-Reactive Protein Total Protein Albumin LDL Cholesterol Direct HDL Cholesterol Urine Creatinine 11/08/16 11/08/16 11/08/16 06:40 06:40 06:40 WBC 2.8 L RBC 3.60 L Hgb 10.1 L Hct 32.2 L D MCHC 31 L RDW 19.4 H Lymph % (Auto) 45.5 H Mckinley % (Auto) 14.1 H Seg Neuts % (Manual) Monocytes % (Manual) Nucleated RBC % Seg Neutrophils # 1.1 L Seg Neutrophils # Man Lymphocytes # (Manual) Monocytes # (Manual) PT 41.4 H INR 4.03 H APTT 59.3 H POC ABG pH POC ABG pCO2 POC ABG pO2 Sodium Chloride Carbon Dioxide BUN Creatinine Glucose POC Glucose Lactic Acid Calcium Magnesium 1.60 L AST ALT Total Creatine Kinase CK-MB (CK-2) CK-MB (CK-2) Rel Index Troponin T C-Reactive Protein Total Protein Albumin LDL Cholesterol Direct HDL Cholesterol Urine Creatinine 11/08/16 11/08/16 11/08/16 06:40 08:23 08:23 WBC RBC Hgb Hct MCHC RDW Lymph % (Auto) Mckinley % (Auto) Seg Neuts % (Manual) Monocytes % (Manual) Nucleated RBC % Seg Neutrophils # Seg Neutrophils # Man Lymphocytes # (Manual) Monocytes # (Manual) PT INR APTT POC ABG pH POC ABG pCO2 POC ABG pO2 Sodium 148 H Chloride 97.5 L Carbon Dioxide 14 L BUN 55 H Creatinine 5.3 H Glucose 165 H POC Glucose Lactic Acid Calcium 7.6 L D Magnesium AST 780 H ALT 376 H Total Creatine Kinase 15194 H 1980 H CK-MB (CK-2) 68.0 H 120.2 H CK-MB (CK-2) Rel Index 6.0 H Troponin T 2.590 H* D 3.210 H* D C-Reactive Protein Total Protein 3.4 L D Albumin 1.6 L LDL Cholesterol Direct HDL Cholesterol Urine Creatinine 11/08/16 11/08/16 11/08/16 08:23 10:16 12:04 WBC RBC Hgb Hct MCHC RDW Lymph % (Auto) Mckinley % (Auto) Seg Neuts % (Manual) Monocytes % (Manual) Nucleated RBC % Seg Neutrophils # Seg Neutrophils # Man Lymphocytes # (Manual) Monocytes # (Manual) PT INR APTT POC ABG pH 7.294 L POC ABG pCO2 31.0 L POC ABG pO2 201 H Sodium Chloride Carbon Dioxide BUN Creatinine Glucose POC Glucose < 40 L Lactic Acid 20.30 H* Calcium Magnesium AST ALT Total Creatine Kinase CK-MB (CK-2) CK-MB (CK-2) Rel Index Troponin T C-Reactive Protein Total Protein Albumin LDL Cholesterol Direct HDL Cholesterol Urine Creatinine Assessment and Plan 21 YO Male admit 11/06 w/ ab pain/N/V-PSBO c/b cardiac arrest after giving anesthesia and recurrent 11/08 AM. Pt has not received any sedative meds for > 24 hrs. On neurologic exam pt has no brainstem reflexes (absent pupillary light response, corneal reflex, OCR, cold caloric response or gag) and no movement reflexic or purposeful to proximal/distal noxious stimulation. 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 Recommendations: 1. Neuro checks 2. CTH to r/o other etiologies for AMS 3. Repeat examination by pants presser automatic to confirm brain 4. Apnea test to confirm no triggered respirations vs. nuclear medical cerebral blood flow scan per hospital brain protocol
[2016-11-08] MEDS ORDERED: D10W 1,000 ML IV SCH (13:00)
[2016-11-08 13:41] LABS: Urine Drugs of Abuse Note Disclamer
[2016-11-08] MEDS ORDERED: NACL 0.9% 1000 ML 1,000 ML ONE ×3 (14:05→18:33)
[2016-11-08 14:20] LABS: ISTAT Base Excess 4; ISTAT HCO3 34.2; ISTAT PCO2 111.1 (35-45); ISTAT PH 7.096 (7.35-7.45); ISTAT PO2 15 (80-105); ISTAT SO2 10; ISTAT TCO2 38
--- NOTE | 2016-11-08 15:18 | Event Note ---
Date: 11/08/16 Code blue called Initial rhythm was PEA/asystole ACLS protocol was initiated, please refer to the code sheet for details Dr Belle was running the code. BG found to be <20. got 3 amps of D50 Pulse regained, family updated bedside.
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
[2016-11-08] MEDS: INTROPIN DRIP 800 MG/D5W 250 ML 800 MG/250 ML BAG IV SCH (20:32)
[2016-11-08] MEDS: SODIUM BICARBONATE 150 MEQ in D5W 1,000 ML IV SCH (21:54)
[2016-11-08 23:16] LABS: ISTAT Base Excess -15; ISTAT HCO3 11.1; ISTAT PCO2 22.9 (35-45); ISTAT PH 7.294 (7.35-7.45); ISTAT PO2 119 (80-105); ISTAT SO2 98; ISTAT TCO2 12
[2016-11-09 01:21] VITALS: BP 70/29
--- NOTE | 2016-11-09 02:51 | Event Note ---
Date: 11/09/16 CODE BLUE was called please refer to the code sheet for details Patient initial rhythm was of brief run of V. fib per diners, followed by PEA ACLS protocol was initiated, there was no ROSC Time of 0108, family at bedside
--- NOTE | 2016-11-09 09:43 | Death Summary ---
Summary - Providers Date of service: 11/09/16 Consults: 11/07/16 18:01 Consult to Physician [CONS] Urgent Consulting Provider: WILLIAMS GONZALEZ Reason For Exam: critical care admission Place consult to:: Dr lynn Notified:: yes Was contact made?: Yes If yes, spoke with:: Dr Ferrara spoke to Dr Lynn Time called:: 18:03 11/08/16 08:00 Consult to PICC Line RN [CONS] Stat Reason For Exam: Need PICC, and only then D/c TLC Type Line:: PICC 11/08/16 08:23 Consult to Physician [CONS] Routine Consulting Provider: Reason For Exam: cardiac arrest Place consult to:: cardiology 11/08/16 08:25 Consult to Physician [CONS] Routine Consulting Provider: RAMO WESTON Reason For Exam: [facility] Place consult to:: renal Notified:: Lanie Phone number called:: [phone] Was contact made?: Yes If yes, spoke with:: Lanie Time called:: 12:48 11/08/16 10:13 Consult to Physician [CONS] Routine Consulting Provider: Reason For Exam: encephalopathy Place consult to:: neurology Attending: BRENDAN ZALDIVAR - summary Date of admission: 11/06/16 13:02 Date of : 11/09/16 Reason for admission: abdominal pain Significant findings: 21 YO Male with Nicotine Dependence presented to ED for abdominal pain, associated with nausea and vomiting for the past 1 day with worsening symptoms over the past [address] abdomen pelvis showed PSBO. Initially was on NG suction. Surgery was planned for elvated lactic acid and increased abdominal pain. Patient had cardiac arrest after giving anesthesia prior to surgery. He was intubated and there after transfer to CCU and surgery was cancelled. His CE and Cr continue to increase and was requiring 3 pressors to maintain BP. He had another 2 episodes of cardiac arrest on 11/08/16 and pulse was regained after each episodes of cardiac arrest but patient was unresponsive with fixed pupil with No cough or gag reflex on physical exam. EEG showed no brain activity. Neurology was consulted and recommended apnea test by hot strip mill inspector. Patient had another cardiac arrest on 11/09/16 early am and was pronounced by Dr. Muhammad. family was updated time to time with all clinical changes and plan of management. Cause of : Cardiopulmonary arrest from severe metabolic acidosis likely from complicated SBO. Pertinent studies: CXR, CT abdomen pelvis, Abdomen XRY - Final diagnosis (1) Cardiac arrest Note: Final diagnosis: (2) SANFORD (acute kidney injury) Note: Final diagnosis: (3) Acute respiratory failure Qualifiers: Respiratory failure complication: R Note: Final diagnosis: (4) Acidosis, metabolic, with respiratory acidosis Note: Final diagnosis:
--- NOTE | 2016-11-09 10:05 | Electroencephalogram Report ---
Electroencephalogram EEG Date of exam: 11/08/16 History: 21 YO M hx cardiac arrest. Impression: Abnormal 20 minute routine EEG in coma. There are findings to suggest profound nonspecific diffuse cerebral dysfunction which may be consistent with brain in the proper clinical setting although this study was not conducted under brain protocol. There are no findings to suggest cortical irritability, epileptiform discharges or electrographic seizures. Description: There is no waking background. The background that is present is diffusely suppressed without clear cerebral frequencies. There is no reactivity, variability or features of sleep. Throughout, the recording there are no epileptiform abnormalities, focal or lateralizing features, or significant interhemispheric findings. Interpretation: This is a digitally acquired 21-channel electroencephalogram. Both bipolar and referential montages were used in interpretation. Electrodes were placed in accordance with the International 10-20 system.
== END 2016-11-09 03:58 | DRG 871 ==
LOC: EDBD → ED 05:12 → 2B-SURG 13:02 → CC1 11-07 18:00
PROVIDERS: ADMIT Internal Medicine; ATTEND Internal Medicine
PROC: 4A033R1 Measurement of Arterial Saturation, Peripheral, Percutaneous Approach (ICD-10-PCS; principal; 2016-11-06)
PROC: 5A12012 Performance of Cardiac Output, Single, Manual (ICD-10-PCS; 2016-11-06)
DX: A41.9 Sepsis, unspecified organism (principal); G93.41 Metabolic encephalopathy; K65.0 Generalized (acute) peritonitis; K65.9 Peritonitis, unspecified; J96.00 Acute respiratory failure, unspecified whether with hypoxia or hypercapnia; R65.21 Severe sepsis with septic shock; N17.0 Acute kidney failure with tubular necrosis; K56.69 Other intestinal obstruction; E87.2 Acidosis; M62.82 Rhabdomyolysis; D68.9 Coagulation defect, unspecified; K92.2 Gastrointestinal hemorrhage, unspecified; I95.9 Hypotension, unspecified; Z91.02 Food additives allergy status; Z93.4 Other artificial openings of gastrointestinal tract status; K66.0 Peritoneal adhesions (postprocedural) (postinfection); I46.9 Cardiac arrest, cause unspecified; I49.01 Ventricular fibrillation; F17.210 Nicotine dependence, cigarettes, uncomplicated; Z53.29 Procedure and treatment not carried out because of patient's decision for other reasons
CPT/HCPCS: 36415; 36600; 71010; 74000; 74020; 74177; 80048; 80053; 80061; 80307; 81001; 82140; 82550; 82553; 82570; 82803; 82962; 83690; 83735; 84300; 84484; 85007; 85025; 85610; 85730; 86140; 87040; 92950; 93005; 93010; 94002; 94003; 94640; 96374; 96375; C9113; J0171; J0330; J0461; J0690; J1170; J1265; J1885; J1956; J2060; J2270; J2370; J2405; J2543; J2704; J3010; J3475; J7030; J7050; J7070; Q9967